=== PATIENT | male | born 1960 | race Caucasian/White ===

== ENCOUNTER 2016-04-19 10:47 | Emergency (ER) | payer BC, OTHER ==
[2016-04-19] MEDS ORDERED: ONDANSETRON 4MG/2ML VIAL (J2405) As Ordered ONE (11:39)
[2016-04-19] MEDS ORDERED: KETOROLAC 30 MG/ML VIAL (J1885) As Ordered ONE (11:40)
[2016-04-19 11:47] LABS: BASO % 0.4 % (0.0-1.0); EOS # 0.1 K/mm3 (0.0-0.50); EOS % 0.8 % (0.0-3.0); LARGE UNSTAINED CELL # 0.5 K/mm3 (0.0-0.4); LARGE UNSTAINED CELL % 3.6 % (0.0-4.0); LYMPH # 2.3 K/mm3 (1.5-4.5); LYMPH % 17.7 % (24.0-44.0); MEAN CORPUSCULAR HEMOGLOBIN 31.5 pg (27.0-33.0); MEAN CORPUSCULAR HGB CONC 34.1 g/dl (32.0-36.5); MEAN CORPUSCULAR VOLUME 92.4 fl (80.0-96.0); MONO # 1.1 K/mm3 (0.0-0.8); MONO % 8.9 % (0.0-5.0); NEUTROPHILS # 8.8 K/mm3 (1.8-7.7); NEUTROPHILS % 68.6 % (36.0-66.0); PLATELET COUNT, AUTOMATED 308 k/mm3 (150-450); WHITE BLOOD COUNT 12.8 K/mm3 (4.0-10.0)
--- NOTE | 2016-04-19 12:16 | REP ---
Abdominal series 04/19/2016 Indication: Abdominal pain Comparison : PA and lateral chest 07/15/2015 PA chest radiograph : Cardiomediastinal silhouette is normal. The lungs are clear bilaterally. Small amount of biapical pleural thickening is unchanged compatible with biapical pleural scarring. Bones and soft tissues are within normal limits. Impression: no acute cardiopulmonary process or interval change. Mild stable biapical pleural thickening/scarring. Flat and upright KUB 04/19/2016 Bowel gas pattern is nonspecific. Moderate stool is noted within the left colon. There are no abnormal air-fluid levels or free intraperitoneal air. Coarse calcifications are seen in the central lower pelvis most compatible with prostatic calcifications. Phleboliths are also noted in the right lower pelvis. Bones are normal in appearance. Impression: nonspecific bowel gas pattern. Moderate stool in the left colon. No free intraperitoneal air. Signed by Giovana Marcial MD 04/19/2016 12:08 P
[2016-04-19 12:22] LABS: INR 0.97
[2016-04-19 12:43] LABS: ALBUMIN 4.2 GM/DL (3.2-5.2); ALKALINE PHOSPHATASE 89 U/L (45-117); ALT/SGPT 31 U/L (12-78); AMYLASE 88 U/L (25-115); ANION GAP 9 MEQ/L (8-16); AST/SGOT 18 U/L (15-37); BILIRUBIN,DIRECT 0.2 MG/DL (0.0-0.2); BILIRUBIN,TOTAL 0.6 MG/DL (0.2-1.0); BLOOD UREA NITROGEN 23 MG/DL (7-18); CALCIUM LEVEL 9.7 MG/DL (8.5-10.1); CARBON DIOXIDE LEVEL 30 MEQ/L (21-32); CHLORIDE LEVEL 99 MEQ/L (98-107); CREATININE FOR GFR 1.07 MG/DL (0.70-1.30); GLOMERULAR FILTRATION RATE > 60.0 (>56); GLUCOSE, FASTING 103 MG/DL (70-105); SODIUM LEVEL 138 MEQ/L (136-145); TOTAL PROTEIN 7.2 GM/DL (6.4-8.2)
--- NOTE | 2016-04-19 13:20 | EDDOCDS ---
Physician Documentation [facility] Name: Bladimir Anna Age: 55 yrs Sex: Male : 1960 Arrival Date: 04/19/2016 Time: 10:47 Bed I3 / M3 Private MD: Johana Cedeno Abdul Disposition: 04/19/16 13:08 Discharged to Home/Self Care. Impression: Abdominal and pelvic pain, Vomiting. - Condition is Stable. - Discharge Instructions: Abdominal Pain, Adult, Nausea and Vomiting. - Prescriptions for Naprosyn 500 mg Oral Tablet - take 1 tablet by ORAL route 2 times per day take with food; 30 tablet. Reglan 10 mg Oral Tablet - take 1 tablet by ORAL route every 6 hours take 30 minutes before meals and at bedtime; 20 tablet. - Medication Reconciliation, Local Pharmacy Hours form. - Follow up: Johana Cedeno; When: 4 - 5 days; Reason: Recheck today's complaints, Continuance of care. - Problem is an ongoing problem. - Symptoms are unchanged. Historical: - Allergies: no known allergies; - Home Meds: 1. none - PMHx: none; - PSHx: none; - Social history: Smoking status: Patient uses tobacco products, heavy tobacco smoker. No barriers to communication noted, The patient speaks fluent Chinese. - Family history: Not pertinent. - : The pt / caregiver states he / she is not on anticoagulants. Home medication list is obtained from the patient. - Exposure Risk Screening:: None identified. Vital Signs: 04/19 10:50 BP 115 / 90; Pulse 92; Resp 18 S; Temp 97.3(O); Pulse Ox 97% on R/A; Weight 65.32 kg / gr2 144.01 lbs (R); Height 5 ft. 11 in. (180.34 cm) (R); Pain 6/10; 13:17 BP 129 / 86 RA Supine (auto/lg); Pulse 71; Resp 16; Temp 98.0(O); Pulse Ox 99% on R/A; rs6 Pain 5/10; 10:50 Body Mass Index 20.08 (65.32 kg, 180.34 cm) gr2 MDM: 10:51 ECG WITH READING ER PHYS+CARDIAG ordered. EDMS 11:15 NS 0.9% 1000 ml IV at bolus once ordered. ke 11:15 Ondansetron 4 mg IVP once ordered. ke 11:15 ketorolac 30 mg IVP once ordered. ke 11:15 IV Saline Lock ordered. ke 11:15 Undress patient appropriately for examination ordered. ke 11:15 Amylase Ordered. EDMS 11:15 Basic Metabolic Profile Ordered. EDMS 11:15 CBC with Diff Ordered. EDMS 11:15 Lipase Ordered. EDMS 11:16 Liver Profile Ordered. EDMS 11:16 Prothrombin Time Profile\E\INR Ordered. EDMS 11:16 Urinalysis Ordered. EDMS 11:17 Abdomen, Flat\E\Upright,PA Chest Ordered. EDMS 11:17 NOTHING BY MOUTH+DIET ordered. EDMS 11:19 ETHYL ALCOHOL (ETHANOL) Ordered. EDMS 11:36 Financial registration complete. lg 12:06 [facility] Payment Agreement was scanned into [employer] and attached to record. lg 13:04 Basic Metabolic Profile Reviewed. ke 13:04 CBC with Diff Reviewed. ke 13:04 Urinalysis Reviewed. ke 13:04 Amylase Reviewed. ke 13:04 Lipase Reviewed. ke 13:04 Liver Profile Reviewed. ke 13:04 Prothrombin Time Profile\E\INR Reviewed. ke 13:04 ETHYL ALCOHOL (ETHANOL) Reviewed. ke 13:04 Abdomen, Flat\E\Upright,PA Chest Reviewed. ke Administered Medications: 11:38 Drug: NS 0.9% 1000 ml Route: IV; Rate: bolus; Site: left antecubital; [facility] 13:19 Follow up: IV Status: Completed infusion dls 12:09 Drug: Ondansetron 4 mg Route: IVP; Site: left antecubital; [facility] 12:09 Drug: ketorolac 30 mg [ketorolac 30 mg/mL (1 mL) injection solution (1 mL)] Route: IVP; [facility] Site: left antecubital; Signatures: Dispatcher MedHo EDFL Jeffery Li RN RN jmk Scott, Debra, RN RN dls Ganter, LoriLee, Armando Reg Anil Healy, ENGINE LATHE TENDER ENGINE LATHE TENDER Blanka Hernandez RN RN jc4 The chart was reviewed and I authenticate all verbal orders and agree with the evaluation and treatment provided.Corrections: (The following items were deleted from the chart) 11:19 11:16 ETHYL ALCOHOL (ETHANOL)+LAB ordered. EDMS EDMS Attachments: 12:06 [facility] Payment Agreement lg MTDD
--- NOTE | 2016-04-19 13:21 | EDDOCDS ---
Nurse's Notes [facility] Name: Bladimir Anna Age: 55 yrs Sex: Male : 1960 Arrival Date: 04/19/2016 Time: 10:47 Bed I3 / M3 Private MD: Johana Cedeno Abdul Diagnosis: Abdominal and pelvic pain;Vomiting Presentation: 04/19 10:52 Presenting complaint: Patient states: tightness in abdomen since 04/16. States vomited jc4 6-7 times. Was seen at [facility] and was given Zofran. States has helped the nausea, but pain continues. Pain is in upper abdomen and radiates into back. Pt complains of diarrhea on 04/16. Adult Sepsis Screening: The patient does not have new or worsening altered mentation. Patient's respiratory rate is less than 22. Systolic blood pressure is greater than 100. Patient has a qSOFA score of 0- Negative Sepsis Screen. Suicide/Homicide risk assessment- the patient denies having any suicidal and/or homicidal ideations and does not present with any other emotional, behavioral or mental health complaints. Status: Patient is not a service associate or dependent. Transition of care: patient was not received from another setting of care. 10:52 Acuity: AKANKSHA Level 3 jc4 10:52 Method Of Arrival: Wheelchair jc4 Triage Assessment: 10:54 General: Appears in no apparent distress. Pain: Pain currently is 5 out of 10 on a pain jc4 scale. HIV screening NA for this visit Offered previously. Historical: - Allergies: no known allergies; - Home Meds: 1. none - PMHx: none; - PSHx: none; - Social history: Smoking status: Patient uses tobacco products, heavy tobacco smoker. No barriers to communication noted, The patient speaks fluent Sierra Leonean. - Family history: Not pertinent. - : The pt / caregiver states he / she is not on anticoagulants. Home medication list is obtained from the patient. - Exposure Risk Screening:: None identified. Screenin:10 Screening information is obtained from the patient. Fall risk: No risks identified. jmk Assistance ADL's: requires no assistance with activities of daily living. Abuse/DV Screen: The patient / caregiver reports he/she is: not in a situation that causes fear, pain or injury. Nutritional screening: No deficits noted. Advance Directives: Currently, there is no health care proxy. There is no active DNR order. There is no living will. There is no Power of Director Of Curriculum And Instruction. Advance directive information has not previously been placed in an [facility] medical record. home support is adequate. Assessment: 12:10 General: Appears in no apparent distress. Cardiovascular: No deficits noted. Capillary jmk refill < 3 seconds Clubbing of nail beds is absent Heart tones S1 S2 present. Respiratory: No deficits noted. Airway is patent Respiratory effort is even, unlabored, Respiratory pattern is regular, Breath sounds are clear bilaterally. GI: Abdomen is flat, non- distended Bowel sounds present X 4 quads. Abd is tender to palpation in right upper quadrant, left upper quadrant, right lower quadrant and left lower quadrant. 12:50 General: Appears states pian has decreased to 6/10, continues to present in NAD. [facility] Vital Signs: 10:50 BP 115 / 90; Pulse 92; Resp 18 S; Temp 97.3(O); Pulse Ox 97% on R/A; Weight 65.32 kg gr2 (R); Height 5 ft. 11 in. (180.34 cm) (R); Pain 6/10; 13:17 BP 129 / 86 RA Supine (auto/lg); Pulse 71; Resp 16; Temp 98.0(O); Pulse Ox 99% on R/A; rs6 Pain 5/10; 10:50 Body Mass Index 20.08 (65.32 kg, 180.34 cm) gr2 Vitals: 10:50 Log In Time: April 19, 2016 at 10:50. RN notified that patient meets Red Flag gr2 criteria. ED Course: 10:48 Patient visited by Kelly Hartman. gr2 10:48 Patient moved to Waiting gr2 10:49 Johana Cedeno is Private Physician. gr2 10:51 Patient visited by Kelly Hartman. gr2 10:51 Patient moved to Pre RCE gr2 10:54 Triage Initiated jc4 10:59 Patient moved to Triage 1 jc4 11:03 EKG done. (by ED staff). Reviewed by Eliseo Manley MD. ar3 11:08 Patient visited by Pat Fournier PCA. ar3 11:08 [facility]. ke 11:08 Patient visited by Anil Dye FNP. ke 11:08 Patient visited by Anil Dye FNP. ke 11:17 Liset Alejandro, RN is Primary Nurse. rs3 11:17 Patient moved to I3 / M3 rs3 11:37 ETHYL ALCOHOL (ETHANOL) Sent. jmk 11:37 Amylase Sent. jmk 11:37 Basic Metabolic Profile Sent. jmk 11:37 CBC with Diff Sent. jmk 11:37 Lipase Sent. jmk 11:37 Liver Profile Sent. jmk 11:37 Prothrombin Time Profile\E\INR Sent. jmk 11:41 Patient visited by Anil Dye FNP. ke 11:42 Patient moved to Radiology dem1 12:01 Patient moved to I3 / M3 gg 12:04 Patient name changed from Bladimir\S\C\S\West\S\ to Bladimir\S\Jacques\S\West. EDMS 12:06 [facility] Payment Agreement was scanned into [employer] and attached to record. lg 12:10 The patient / caregiver is instructed regarding the plan of care and ED course. jmk 12:10 Inserted saline lock: 20 gauge in left antecubital area. jmk 12:15 Patient visited by Anil Dye FNP. ke 12:38 Patient visited by Anil Dye FNP. ke 12:42 Abdomen, Flat\E\Upright,PA Chest Returned. EDMS 12:51 Patient visited by Jeffery Li,KIRK. jmk 13:07 Johana Cedeno is Referral Physician. ke 13:17 Patient visited by Bertha Syed, MARIA A. rs6 13:18 Discontinued IV lock intact, bleeding controlled, pressure dressing applied, No dls redness/swelling at site. No procedures done that require assistance. Administered Medications: 11:38 Drug: NS 0.9% 1000 ml Route: IV; Rate: bolus; Site: left antecubital; [facility] 13:19 Follow up: IV Status: Completed infusion dls 12:09 Drug: Ondansetron 4 mg Route: IVP; Site: left antecubital; jmk 12:09 Drug: ketorolac 30 mg [ketorolac 30 mg/mL (1 mL) injection solution (1 mL)] Route: IVP; lorenzo Site: left antecubital; Order Results: Lab Order: Amylase; SPEC'M 17 12:00 Test: AMYLASE; Value: 88; Range: 25-115; Units: U/L; Status: F Lab Order: Basic Metabolic Profile; 04/19/16 12:00 Test: GLUCOSE, FASTING; Value: 103; Range: 70-105; Units: MG/DL; Status: F Test: BLOOD UREA NITROGEN; Value: 23; Range: 7-18; Abnormal: Above high normal; Units: MG/DL; Status: F Test: CREATININE FOR GFR; Value: 1.07; Range: 0.70-1.30; Units: MG/DL; Status: F Test: GLOMERULAR FILTRATION RATE; Value: > 60.0; Range: >56; Status: F Test: SODIUM LEVEL; Value: 138; Range: 136-145; Units: MEQ/L; Status: F Test: POTASSIUM SERUM; Value: 4.0; Range: 3.5-5.1; Units: MEQ/L; Status: F Test: CHLORIDE LEVEL; Value: 99; Range: 98-107; Units: MEQ/L; Status: F Test: CARBON DIOXIDE LEVEL; Value: 30; Range: 21-32; Units: MEQ/L; Status: F Test: ANION GAP; Value: 9; Range: 8-16; Units: MEQ/L; Status: F Test: CALCIUM LEVEL; Value: 9.7; Range: 8.5-10.1; Units: MG/DL; Status: F Test Note: ; Units are mL/min/1.73 m2 Chronic Kidney Disease Staging per NKF: Stage I & II GFR >=60 Normal to Mildly Decreased Stage III GFR 30-59 Moderately Decreased Stage IV GFR 15-29 Severely Decreased Stage V GFR <15 Very Little GFR Left ESRD GFR <15 on GEL COATER Lab Order: CBC with Diff; 04/19/16 11:35 Test: WHITE BLOOD COUNT; Value: 12.8; Range: 4.0-10.0; Abnormal: Above high normal; Units: K/mm3; Status: F Test: RED BLOOD COUNT; Value: 5.32; Range: 4.30-6.10; Units: M/mm3; Status: F Test: HEMOGLOBIN; Value: 16.8; Range: 14.0-18.0; Units: g/dl; Status: F Test: HEMATOCRIT; Value: 49.2; Range: 42.0-52.0; Units: %; Status: F Test: MEAN CORPUSCULAR VOLUME; Value: 92.4; Range: 80.0-96.0; Units: fl; Status: F Test: MEAN CORPUSCULAR HEMOGLOBIN; Value: 31.5; Range: 27.0-33.0; Units: pg; Status: F Test: MEAN CORPUSCULAR HGB CONC; Value: 34.1; Range: 32.0-36.5; Units: g/dl; Status: F Test: RED CELL DISTRIBUTION WIDTH; Value: 13.0; Range: 11.5-14.5; Units: %; Status: F Test: PLATELET COUNT, AUTOMATED; Value: 308; Range: 150-450; Units: k/mm3; Status: F Test: NEUTROPHILS %; Value: 68.6; Range: 36.0-66.0; Abnormal: Above high normal; Units: %; Status: F Test: LYMPH %; Value: 17.7; Range: 24.0-44.0; Abnormal: Below low normal; Units: %; Status: F Test: MONO %; Value: 8.9; Range: 0.0-5.0; Abnormal: Above high normal; Units: %; Status: F Test: EOS %; Value: 0.8; Range: 0.0-3.0; Units: %; Status: F Test: BASO %; Value: 0.4; Range: 0.0-1.0; Units: %; Status: F Test: LARGE UNSTAINED CELL %; Value: 3.6; Range: 0.0-4.0; Units: %; Status: F Test: NEUTROPHILS #; Value: 8.8; Range: 1.8-7.7; Abnormal: Above high normal; Units: K/mm3; Status: F Test: LYMPH #; Value: 2.3; Range: 1.5-4.5; Units: K/mm3; Status: F Test: MONO #; Value: 1.1; Range: 0.0-0.8; Abnormal: Above high normal; Units: K/mm3; Status: F Test: EOS #; Value: 0.1; Range: 0.0-0.50; Units: K/mm3; Status: F Test: BASO #; Value: 0.0; Range: 0.0-0.2; Units: K/mm3; Status: F Test: LARGE UNSTAINED CELL #; Value: 0.5; Range: 0.0-0.4; Abnormal: Above high normal; Units: K/mm3; Status: F Lab Order: Lipase; [facility] 04/19/16 12:00 Test: LIPASE; Value: 329; Range: 73-393; Units: U/L; Status: F Lab Order: Liver Profile; [facility] 04/19/16 12:00 Test: AST/SGOT; Value: 18; Range: 15-37; Units: U/L; Status: F Test: ALT/SGPT; Value: 31; Range: 12-78; Units: U/L; Status: F Test: ALKALINE PHOSPHATASE; Value: 89; Range: 45-117; Units: U/L; Status: F Test: BILIRUBIN,TOTAL; Value: 0.6; Range: 0.2-1.0; Units: MG/DL; Status: F Test: BILIRUBIN,DIRECT; Value: 0.2; Range: 0.0-0.2; Units: MG/DL; Status: F Test: TOTAL PROTEIN; Value: 7.2; Range: 6.4-8.2; Units: GM/DL; Status: F Test: ALBUMIN; Value: 4.2; Range: 3.2-5.2; Units: GM/DL; Status: F Test: ALBUMIN/GLOBULIN RATIO; Value: 1.40; Range: 1.00-1.93; Status: F Lab Order: Prothrombin Time Profile\E\INR; [facility] 04/19/16 12:00 Test: PROTHROMBIN TIME; Value: 13.0; Range: 12.3-14.5; Units: SECONDS; Status: F Test: INR; Value: 0.97; Status: F Test Note: ; THERAPUTIC HUMAN INR VALUES INDICATIONS NORMAL RANGES PROPHYLAXIS/TREATMENT OF: VENOUS THROMBOSIS 2.0-3.0 PULMONARY EMBOLISM 2.0-3.0 PREVENTION OF SYSTEMIC EMBOLISM FROM: TISSUE HEART VALVES 2.0-3.0 ACUTE MYOCARDIAL INFARCTION 2.0-3.0 VALVULAR HEART DISEASE 2.0-3.0 ATRIAL FIBRILLATION 2.0-3.0 MECHANICAL VALVES(HIGH RISK) 2.5-3.5 RECURRENT MYOCARDIAL INFARCTION 2.5-3.5 Lab Order: Urinalysis; SPEC'M 04/19/16 11:21 Test: APPEARANCE, URINE; Value: HAZY; Range: CLEAR; Status: F Test: COLOR, URINE; Value: KRISTIAN; Range: YELLOW; Status: F Test: PH,URINE; Value: 5.0; Range: 5.0-9.0; Units: UNITS; Status: F Test: SPECIFIC GRAVITY URINE AUTO; Value: 1.027; Range: 1.002-1.035; Status: F Test: PROTEIN, URINE AUTO; Value: 1+; Range: NEGATIVE; Abnormal: Above high normal; Units: mg/dL; Status: F Test: GLUCOSE, URINE (UA) AUTO; Value: NEGATIVE; Range: NEGATIVE; Units: mg/dL; Status: F Test: KETONE, URINE AUTO; Value: TRACE; Range: NEGATIVE; Abnormal: Above high normal; Units: mg/dL; Status: F Test: UROBILINOGEN, URINE AUTO; Value: 0.2; Range: 0.0-2.0; Units: mg/dL; Status: F Test: BILIRUBIN, URINE AUTO; Value: NEGATIVE; Range: NEGATIVE; Status: F Test: NITRITE, URINE AUTO; Value: NEGATIVE; Range: NEGATIVE; Status: F Test: LEUKOCYTE ESTERASE, URINE AUTO; Value: NEGATIVE; Range: NEGATIVE; Status: F Test: BLOOD, URINE BLOOD; Value: 1+; Range: NEGATIVE; Abnormal: Above high normal; Status: F Test: WBC, URINE AUTO; Value: 2; Range: 0-3; Units: /HPF; Status: F Test: RBC, URINE AUTO; Value: 3; Range: 0-3; Units: /HPF; Status: F Test: BACTERIA, URINE AUTO; Value: NEGATIVE; Range: NEGATIVE; Status: F Test: SQUAMOUS EPITHELIAL CELL UR AU; Value: 1; Range: 0-6; Units: /HPF; Status: F Test: MUCUS, URINE; Value: LARGE; Range: NEGATIVE; Status: F Test: HYALINE CAST, URINE AUTO; Value: 1; Range: 0-1; Units: /LPF; Status: F Lab Order: ETHYL ALCOHOL (ETHANOL); SPEC'M 04/19/16 12:00 Test: ETHYL ALCOHOL (ETHANOL); Value: < 0.003; Range: 0.000-0.010; Units: %; Status: F Radiology Order: Abdomen, Flat\E\Upright,PA Chest Test: Abdomen, Flat\E\Upright,PA Chest REASON FOR EXAMINATION: Abdomen Pain; Abdominal series 04/19/2016; ; Indication: Abdominal pain; ; Comparison : PA and lateral chest 07/15/2015; ; PA chest radiograph :; ; Cardiomediastinal silhouette is normal. The lungs are clear bilaterally. Small; amount of biapical pleural thickening is unchanged compatible with biapical; pleural scarring. Bones and soft tissues are within normal limits.; ; Impression: no acute cardiopulmonary process or interval change. Mild stable; biapical pleural thickening/scarring.; ; ; ; Flat and upright KUB 04/19/2016; ; Bowel gas pattern is nonspecific. Moderate stool is noted within the left; colon. There are no abnormal air-fluid levels or free intraperitoneal air.; ; Coarse calcifications are seen in the central lower pelvis most compatible with; prostatic calcifications. Phleboliths are also noted in the right lower pelvis.; Bones are normal in appearance.; ; Impression: nonspecific bowel gas pattern. Moderate stool in the left colon.; No free intraperitoneal air.; ; ; Signed by; Giovana Marcial MD 04/19/2016 12:08 P; Outcome: 13:08 Discharge ordered by Provider. armani 13:19 Discharge Assessment: Patient awake, alert and oriented x 3. No cognitive and/or dls functional deficits noted. Patient verbalized understanding of disposition instructions. patient administered narcotics - no. The following High Risk Discharge criteria are identified: None. Discharged to home ambulatory. Condition: stable Condition: improved. Discharge instructions given to patient, Instructed on discharge instructions, follow up and referral plans. medication usage, Demonstrated understanding of instructions, medications, Pt was receptive of discharge instructions/ teaching. Prescriptions given X 2. No special radiology studies were completed. Property sent home with patient. 13:20 Patient left the ED. dls Signatures: Dispatcher [employer] EDMS Jeffery Li,RN Liset Martin RN RN dls Ale Kent, Reg Reg lg Anil Dye, INDUSTRIAL RELATIONS SPECIALIST INDUSTRIAL RELATIONS SPECIALIST Trenton Alarcon Rosemary, RN RN rs3 Pat Fournier, PROPOSAL DEVELOPMENT MANAGER PROPOSAL DEVELOPMENT MANAGER ar3 Blanka Cruz RN RN jc4 Monica Huang1 Kelly Hartman gr2 Bertha Syed, PROPOSAL DEVELOPMENT MANAGER PROPOSAL DEVELOPMENT MANAGER rs6 MTDD
--- NOTE | 2016-04-20 19:46 | ECGEPIP ---
Stationary ECG Study [facility] - ED Test Date: 2016-04-19 Pat Name: JOSE MIGUEL HERNANDEZ Department: Room: - Gender: M [employer] Tick[employer]: jeanmarie : 1960 Requested By: DENVER Pugh Order Number: [id number] Reading MD: Audrey Delgado Measurements Intervals [place] Rate: 74 P: 81 AL: 147 QRS: 75 QRSD: 105 T: 43 QT: 346 QTc: 386 Interpretive Statements SINUS RHYTHM POSSIBLE RIGHT ATRIAL ENLARGEMENT SIMILAR 12/31/11 Electronically Signed On 04-20-2016 19:46:22 EST by Audrey Delgado
--- NOTE | 2016-04-21 14:21 | EDDOCDS ---
Physician Documentation [facility] Name: Bladimir Anna Age: 55 yrs Sex: Male : 1960 Arrival Date: 04/19/2016 Time: 10:47 Bed I3 / M3 Private MD: Johana Cedeno Abdul Disposition: 04/19/16 13:08 Discharged to Home/Self Care. Impression: Abdominal and pelvic pain, Vomiting. - Condition is Stable. - Discharge Instructions: Abdominal Pain, Adult, Nausea and Vomiting. - Prescriptions for Naprosyn 500 mg Oral Tablet - take 1 tablet by ORAL route 2 times per day take with food; 30 tablet. Reglan 10 mg Oral Tablet - take 1 tablet by ORAL route every 6 hours take 30 minutes before meals and at bedtime; 20 tablet. - Medication Reconciliation, Local Pharmacy Hours form. - Follow up: Johana Cedeno; When: 4 - 5 days; Reason: Recheck today's complaints, Continuance of care. - Problem is an ongoing problem. - Symptoms are unchanged. Historical: - Allergies: no known allergies; - Home Meds: 1. none - PMHx: none; - PSHx: none; - Social history: Smoking status: Patient uses tobacco products, heavy tobacco smoker. No barriers to communication noted, The patient speaks fluent Kyrgyz. - Family history: Not pertinent. - : The pt / caregiver states he / she is not on anticoagulants. Home medication list is obtained from the patient. - Exposure Risk Screening:: None identified. Vital Signs: 04/19 10:50 BP 115 / 90; Pulse 92; Resp 18 S; Temp 97.3(O); Pulse Ox 97% on R/A; Weight 65.32 kg / gr2 144.01 lbs (R); Height 5 ft. 11 in. (180.34 cm) (R); Pain 6/10; 13:17 BP 129 / 86 RA Supine (auto/lg); Pulse 71; Resp 16; Temp 98.0(O); Pulse Ox 99% on R/A; rs6 Pain 5/10; 10:50 Body Mass Index 20.08 (65.32 kg, 180.34 cm) gr2 MDM: 10:51 ECG WITH READING ER PHYS+CARDIAG ordered. EDMS 11:15 NS 0.9% 1000 ml IV at bolus once ordered. ke 11:15 Ondansetron 4 mg IVP once ordered. ke 11:15 ketorolac 30 mg IVP once ordered. ke 11:15 IV Saline Lock ordered. ke 11:15 Undress patient appropriately for examination ordered. ke 11:15 Amylase Ordered. EDMS 11:15 Basic Metabolic Profile Ordered. EDMS 11:15 CBC with Diff Ordered. EDMS 11:15 Lipase Ordered. EDMS 11:16 Liver Profile Ordered. EDMS 11:16 Prothrombin Time Profile\E\INR Ordered. EDMS 11:16 Urinalysis Ordered. EDMS 11:17 Abdomen, Flat\E\Upright,PA Chest Ordered. EDMS 11:17 NOTHING BY MOUTH+DIET ordered. EDMS 11:19 ETHYL ALCOHOL (ETHANOL) Ordered. EDMS 11:36 Financial registration complete. lg 12:06 [facility] Payment Agreement was scanned into [employer] and attached to record. lg 13:04 Basic Metabolic Profile Reviewed. ke 13:04 CBC with Diff Reviewed. ke 13:04 Urinalysis Reviewed. ke 13:04 Amylase Reviewed. ke 13:04 Lipase Reviewed. ke 13:04 Liver Profile Reviewed. ke 13:04 Prothrombin Time Profile\E\INR Reviewed. ke 13:04 ETHYL ALCOHOL (ETHANOL) Reviewed. ke 13:04 Abdomen, Flat\E\Upright,PA Chest Reviewed. ke 04/20 13:30 T-Sheet-- Draft Copy was scanned into [employer] and attached to record. gb 13:30 ECG/EKG was scanned into [employer] and attached to record. gb Administered Medications: 04/19 11:38 Drug: NS 0.9% 1000 ml Route: IV; Rate: bolus; Site: left antecubital; serjiok 13:19 Follow up: IV Status: Completed infusion dls 12:09 Drug: Ondansetron 4 mg Route: IVP; Site: left antecubital; k 12:09 Drug: ketorolac 30 mg [ketorolac 30 mg/mL (1 mL) injection solution (1 mL)] Route: IVP; lorenzo Site: left antecubital; Signatures: Dispatcher [employer] EDMS Jeffery Li RN RN Liset Quick RN RN dls Madonna Malin, Reg Reg gb Ale Kent, Reg Reg lg Anil Dye, ASSISTANT STORE MANAGER SALES ASSISTANT STORE MANAGER SALES Blanka Hernandez RN RN jc4 The chart was reviewed and I authenticate all verbal orders and agree with the evaluation and treatment provided.Corrections: (The following items were deleted from the chart) 11:19 11:16 ETHYL ALCOHOL (ETHANOL)+LAB ordered. EDMS EDMS Attachments: 12:06 [facility] Payment Agreement lg 04/20 13:30 T-Sheet-- Draft Copy gb 13:30 ECG/EKG gb Chart Complete MTDD
--- NOTE | 2016-04-21 14:21 | EDDOCDS ---
Nurse's Notes [facility] Name: Jose Miguel Hernandez Age: 55 yrs Sex: Male : 1960 Arrival Date: 04/19/2016 Time: 10:47 Bed I3 / M3 Private MD: Johana Cedeno Abdul Diagnosis: Abdominal and pelvic pain;Vomiting Presentation: 04/19 10:52 Presenting complaint: Patient states: tightness in abdomen since 04/16. States vomited jc4 6-7 times. Was seen at [facility] and was given Zofran. States has helped the nausea, but pain continues. Pain is in upper abdomen and radiates into back. Pt complains of diarrhea on 04/16. Adult Sepsis Screening: The patient does not have new or worsening altered mentation. Patient's respiratory rate is less than 22. Systolic blood pressure is greater than 100. Patient has a qSOFA score of 0- Negative Sepsis Screen. Suicide/Homicide risk assessment- the patient denies having any suicidal and/or homicidal ideations and does not present with any other emotional, behavioral or mental health complaints. Status: Patient is not a sales service executive or dependent. Transition of care: patient was not received from another setting of care. 10:52 Acuity: AKANKSHA Level 3 jc4 10:52 Method Of Arrival: Wheelchair jc4 Triage Assessment: 10:54 General: Appears in no apparent distress. Pain: Pain currently is 5 out of 10 on a pain jc4 scale. HIV screening NA for this visit Offered previously. Historical: - Allergies: no known allergies; - Home Meds: 1. none - PMHx: none; - PSHx: none; - Social history: Smoking status: Patient uses tobacco products, heavy tobacco smoker. No barriers to communication noted, The patient speaks fluent Sammarinese. - Family history: Not pertinent. - : The pt / caregiver states he / she is not on anticoagulants. Home medication list is obtained from the patient. - Exposure Risk Screening:: None identified. Screenin:10 Screening information is obtained from the patient. Fall risk: No risks identified. jmk Assistance ADL's: requires no assistance with activities of daily living. Abuse/DV Screen: The patient / caregiver reports he/she is: not in a situation that causes fear, pain or injury. Nutritional screening: No deficits noted. Advance Directives: Currently, there is no health care proxy. There is no active DNR order. There is no living will. There is no Power of Home Health Care Provider. Advance directive information has not previously been placed in an [facility] medical record. home support is adequate. Assessment: 12:10 General: Appears in no apparent distress. Cardiovascular: No deficits noted. Capillary jmk refill < 3 seconds Clubbing of nail beds is absent Heart tones S1 S2 present. Respiratory: No deficits noted. Airway is patent Respiratory effort is even, unlabored, Respiratory pattern is regular, Breath sounds are clear bilaterally. GI: Abdomen is flat, non- distended Bowel sounds present X 4 quads. Abd is tender to palpation in right upper quadrant, left upper quadrant, right lower quadrant and left lower quadrant. 12:50 General: Appears states pian has decreased to 6/10, continues to present in NAD. [facility] Vital Signs: 10:50 BP 115 / 90; Pulse 92; Resp 18 S; Temp 97.3(O); Pulse Ox 97% on R/A; Weight 65.32 kg gr2 (R); Height 5 ft. 11 in. (180.34 cm) (R); Pain 6/10; 13:17 BP 129 / 86 RA Supine (auto/lg); Pulse 71; Resp 16; Temp 98.0(O); Pulse Ox 99% on R/A; rs6 Pain 5/10; 10:50 Body Mass Index 20.08 (65.32 kg, 180.34 cm) gr2 Vitals: 10:50 Log In Time: April 19, 2016 at 10:50. RN notified that patient meets Red Flag gr2 criteria. ED Course: 10:48 Patient visited by Kelly Hartman. gr2 10:48 Patient moved to Waiting gr2 10:49 Johana Cedeno is Private Physician. gr2 10:51 Patient visited by Kelly Hartman. gr2 10:51 Patient moved to Pre RCE gr2 10:54 Triage Initiated jc4 10:59 Patient moved to Triage 1 jc4 11:03 EKG done. (by ED staff). Reviewed by Denver Manley MD. ar3 11:08 Patient visited by Pat Fournier PCA. ar3 11:08 [facility]. ke 11:08 Patient visited by Anil yDe FNP. ke 11:08 Patient visited by Anil Dye FNP. ke 11:17 Liset Alejandro, RN is Primary Nurse. rs3 11:17 Patient moved to 3 / rs3 11:37 ETHYL ALCOHOL (ETHANOL) Sent. jmk 11:37 Amylase Sent. jmk 11:37 Basic Metabolic Profile Sent. jmk 11:37 CBC with Diff Sent. jmk 11:37 Lipase Sent. jmk 11:37 Liver Profile Sent. jmk 11:37 Prothrombin Time Profile\E\INR Sent. jmk 11:41 Patient visited by Anil Dye FNP. ke 11:42 Patient moved to Radiology dem1 12:01 Patient moved to I3 / gg 12:04 Patient name changed from Jose Miguel\S\C\S\West\S\ to Jose Miguel\S\Jacques\S\West. EDMS 12:06 [facility] Payment Agreement was scanned into E Ink and attached to record. lg 12:10 The patient / caregiver is instructed regarding the plan of care and ED course. jmk 12:10 Inserted saline lock: 20 gauge in left antecubital area. jmk 12:15 Patient visited by Anil Dye FNP. ke 12:38 Patient visited by Anil Dye FNP. ke 12:42 Abdomen, Flat\E\Upright,PA Chest Returned. EDMS 12:51 Patient visited by Jeffery Li,KIRK. jmk 13:07 Johana Cedeno is Referral Physician. ke 13:17 Patient visited by Bertha Syed, MARIA A. rs6 13:18 Discontinued IV lock intact, bleeding controlled, pressure dressing applied, No dls redness/swelling at site. No procedures done that require assistance. 04/20 13:30 T-Sheet-- Draft Copy was scanned into E Ink and attached to record. gb 13:30 ECG/EKG was scanned into E Ink and attached to record. gb 20:25 EKG-ADULT Returned. EDMS Administered Medications: 04/19 11:38 Drug: NS 0.9% 1000 ml Route: IV; Rate: bolus; Site: left antecubital; jmk 13:19 Follow up: IV Status: Completed infusion dls 12:09 Drug: Ondansetron 4 mg Route: IVP; Site: left antecubital; [facility] 12:09 Drug: ketorolac 30 mg [ketorolac 30 mg/mL (1 mL) injection solution (1 mL)] Route: IVP; [facility] Site: left antecubital; Order Results: Lab Order: Amylase; SPEC'04/19/16 12:00 Test: AMYLASE; Value: 88; Range: 25-115; Units: U/L; Status: F Lab Order: Basic Metabolic Profile; SPEC04/19/16 12:00 Test: GLUCOSE, FASTING; Value: 103; Range: 70-105; Units: MG/DL; Status: F Test: BLOOD UREA NITROGEN; Value: 23; Range: 7-18; Abnormal: Above high normal; Units: MG/DL; Status: F Test: CREATININE FOR GFR; Value: 1.07; Range: 0.70-1.30; Units: MG/DL; Status: F Test: GLOMERULAR FILTRATION RATE; Value: > 60.0; Range: >56; Status: F Test: SODIUM LEVEL; Value: 138; Range: 136-145; Units: MEQ/L; Status: F Test: POTASSIUM SERUM; Value: 4.0; Range: 3.5-5.1; Units: MEQ/L; Status: F Test: CHLORIDE LEVEL; Value: 99; Range: 98-107; Units: MEQ/L; Status: F Test: CARBON DIOXIDE LEVEL; Value: 30; Range: 21-32; Units: MEQ/L; Status: F Test: ANION GAP; Value: 9; Range: 8-16; Units: MEQ/L; Status: F Test: CALCIUM LEVEL; Value: 9.7; Range: 8.5-10.1; Units: MG/DL; Status: F Test Note: ; Units are mL/min/1.73 m2 Chronic Kidney Disease Staging per NKF: Stage I & II GFR >=60 Normal to Mildly Decreased Stage III GFR 30-59 Moderately Decreased Stage IV GFR 15-29 Severely Decreased Stage V GFR <15 Very Little GFR Left ESRD GFR <15 on BEAM DYER OPERATOR Lab Order: CBC with Diff; SPEC'04/19/16 11:35 Test: WHITE BLOOD COUNT; Value: 12.8; Range: 4.0-10.0; Abnormal: Above high normal; Units: K/mm3; Status: F Test: RED BLOOD COUNT; Value: 5.32; Range: 4.30-6.10; Units: M/mm3; Status: F Test: HEMOGLOBIN; Value: 16.8; Range: 14.0-18.0; Units: g/dl; Status: F Test: HEMATOCRIT; Value: 49.2; Range: 42.0-52.0; Units: %; Status: F Test: MEAN CORPUSCULAR VOLUME; Value: 92.4; Range: 80.0-96.0; Units: fl; Status: F Test: MEAN CORPUSCULAR HEMOGLOBIN; Value: 31.5; Range: 27.0-33.0; Units: pg; Status: F Test: MEAN CORPUSCULAR HGB CONC; Value: 34.1; Range: 32.0-36.5; Units: g/dl; Status: F Test: RED CELL DISTRIBUTION WIDTH; Value: 13.0; Range: 11.5-14.5; Units: %; Status: F Test: PLATELET COUNT, AUTOMATED; Value: 308; Range: 150-450; Units: k/mm3; Status: F Test: NEUTROPHILS %; Value: 68.6; Range: 36.0-66.0; Abnormal: Above high normal; Units: %; Status: F Test: LYMPH %; Value: 17.7; Range: 24.0-44.0; Abnormal: Below low normal; Units: %; Status: F Test: MONO %; Value: 8.9; Range: 0.0-5.0; Abnormal: Above high normal; Units: %; Status: F Test: EOS %; Value: 0.8; Range: 0.0-3.0; Units: %; Status: F Test: BASO %; Value: 0.4; Range: 0.0-1.0; Units: %; Status: F Test: LARGE UNSTAINED CELL %; Value: 3.6; Range: 0.0-4.0; Units: %; Status: F Test: NEUTROPHILS #; Value: 8.8; Range: 1.8-7.7; Abnormal: Above high normal; Units: K/mm3; Status: F Test: LYMPH #; Value: 2.3; Range: 1.5-4.5; Units: K/mm3; Status: F Test: MONO #; Value: 1.1; Range: 0.0-0.8; Abnormal: Above high normal; Units: K/mm3; Status: F Test: EOS #; Value: 0.1; Range: 0.0-0.50; Units: K/mm3; Status: F Test: BASO #; Value: 0.0; Range: 0.0-0.2; Units: K/mm3; Status: F Test: LARGE UNSTAINED CELL #; Value: 0.5; Range: 0.0-0.4; Abnormal: Above high normal; Units: K/mm3; Status: F Lab Order: Lipase; SPEC'04/19/16 12:00 Test: LIPASE; Value: 329; Range: 73-393; Units: U/L; Status: F Lab Order: Liver Profile; [facility] 12:00 Test: AST/SGOT; Value: 18; Range: 15-37; Units: U/L; Status: F Test: ALT/SGPT; Value: 31; Range: 12-78; Units: U/L; Status: F Test: ALKALINE PHOSPHATASE; Value: 89; Range: 45-117; Units: U/L; Status: F Test: BILIRUBIN,TOTAL; Value: 0.6; Range: 0.2-1.0; Units: MG/DL; Status: F Test: BILIRUBIN,DIRECT; Value: 0.2; Range: 0.0-0.2; Units: MG/DL; Status: F Test: TOTAL PROTEIN; Value: 7.2; Range: 6.4-8.2; Units: GM/DL; Status: F Test: ALBUMIN; Value: 4.2; Range: 3.2-5.2; Units: GM/DL; Status: F Test: ALBUMIN/GLOBULIN RATIO; Value: 1.40; Range: 1.00-1.93; Status: F Lab Order: Prothrombin Time Profile\E\INR; [facility]04/[facility] 12:00 Test: PROTHROMBIN TIME; Value: 13.0; Range: 12.3-14.5; Units: SECONDS; Status: F Test: INR; Value: 0.97; Status: F Test Note: ; THERAPUTIC HUMAN INR VALUES INDICATIONS NORMAL RANGES PROPHYLAXIS/TREATMENT OF: VENOUS THROMBOSIS 2.0-3.0 PULMONARY EMBOLISM 2.0-3.0 PREVENTION OF SYSTEMIC EMBOLISM FROM: TISSUE HEART VALVES 2.0-3.0 ACUTE MYOCARDIAL INFARCTION 2.0-3.0 VALVULAR HEART DISEASE 2.0-3.0 ATRIAL FIBRILLATION 2.0-3.0 MECHANICAL VALVES(HIGH RISK) 2.5-3.5 RECURRENT MYOCARDIAL INFARCTION 2.5-3.5 Lab Order: Urinalysis; SPEC'M 04/19/16 11:21 Test: APPEARANCE, URINE; Value: HAZY; Range: CLEAR; Status: F Test: COLOR, URINE; Value: KRISTIAN; Range: YELLOW; Status: F Test: PH,URINE; Value: 5.0; Range: 5.0-9.0; Units: UNITS; Status: F Test: SPECIFIC GRAVITY URINE AUTO; Value: 1.027; Range: 1.002-1.035; Status: F Test: PROTEIN, URINE AUTO; Value: 1+; Range: NEGATIVE; Abnormal: Above high normal; Units: mg/dL; Status: F Test: GLUCOSE, URINE (UA) AUTO; Value: NEGATIVE; Range: NEGATIVE; Units: mg/dL; Status: F Test: KETONE, URINE AUTO; Value: TRACE; Range: NEGATIVE; Abnormal: Above high normal; Units: mg/dL; Status: F Test: UROBILINOGEN, URINE AUTO; Value: 0.2; Range: 0.0-2.0; Units: mg/dL; Status: F Test: BILIRUBIN, URINE AUTO; Value: NEGATIVE; Range: NEGATIVE; Status: F Test: NITRITE, URINE AUTO; Value: NEGATIVE; Range: NEGATIVE; Status: F Test: LEUKOCYTE ESTERASE, URINE AUTO; Value: NEGATIVE; Range: NEGATIVE; Status: F Test: BLOOD, URINE BLOOD; Value: 1+; Range: NEGATIVE; Abnormal: Above high normal; Status: F Test: WBC, URINE AUTO; Value: 2; Range: 0-3; Units: /HPF; Status: F Test: RBC, URINE AUTO; Value: 3; Range: 0-3; Units: /HPF; Status: F Test: BACTERIA, URINE AUTO; Value: NEGATIVE; Range: NEGATIVE; Status: F Test: SQUAMOUS EPITHELIAL CELL UR AU; Value: 1; Range: 0-6; Units: /HPF; Status: F Test: MUCUS, URINE; Value: LARGE; Range: NEGATIVE; Status: F Test: HYALINE CAST, URINE AUTO; Value: 1; Range: 0-1; Units: /LPF; Status: F Lab Order: ETHYL ALCOHOL (ETHANOL); SPEC'M 04/19/16 12:00 Test: ETHYL ALCOHOL (ETHANOL); Value: < 0.003; Range: 0.000-0.010; Units: %; Status: F Radiology Order: EKG-ADULT Test: EKG-ADULT REASON FOR EXAMINATION: Chest Pain; Stationary ECG Study; [facility] - ED; ; Test Date: 2016-04-19; Pat Name: JOSE MIGUEL HERNANDEZ Department:; Room: -; 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; : 1960 Requested By: DENVER Pugh; Order Number: [id number] Reading MD: Audrey Delgado; Measurements; Intervals [place]; Rate: 74 P: 81; ND: 147 QRS: 75; QRSD: 105 T: 43; QT: 346; QTc: 386; Interpretive Statements; SINUS RHYTHM; POSSIBLE RIGHT ATRIAL ENLARGEMENT; SIMILAR 12/31/11; Electronically Signed On 04-20-2016 19:46:22 EST by Audrey Delgado; Radiology Order: Abdomen, Flat\E\Upright,PA Chest Test: Abdomen, Flat\E\Upright,PA Chest REASON FOR EXAMINATION: Abdomen Pain; Abdominal series 04/19/2016; ; Indication: Abdominal pain; ; Comparison : PA and lateral chest 07/15/2015; ; PA chest radiograph :; ; Cardiomediastinal silhouette is normal. The lungs are clear bilaterally. Small; amount of biapical pleural thickening is unchanged compatible with biapical; pleural scarring. Bones and soft tissues are within normal limits.; ; Impression: no acute cardiopulmonary process or interval change. Mild stable; biapical pleural thickening/scarring.; ; ; ; Flat and upright KUB 04/19/2016; ; Bowel gas pattern is nonspecific. Moderate stool is noted within the left; colon. There are no abnormal air-fluid levels or free intraperitoneal air.; ; Coarse calcifications are seen in the central lower pelvis most compatible with; prostatic calcifications. Phleboliths are also noted in the right lower pelvis.; Bones are normal in appearance.; ; Impression: nonspecific bowel gas pattern. Moderate stool in the left colon.; No free intraperitoneal air.; ; ; Signed by; Giovana Marcial MD 04/19/2016 12:08 P; Outcome: 13:08 Discharge ordered by Provider. armani 13:19 Discharge Assessment: Patient awake, alert and oriented x 3. No cognitive and/or dls functional deficits noted. Patient verbalized understanding of disposition instructions. patient administered narcotics - no. The following High Risk Discharge criteria are identified: None. Discharged to home ambulatory. Condition: stable Condition: improved. Discharge instructions given to patient, Instructed on discharge instructions, follow up and referral plans. medication usage, Demonstrated understanding of instructions, medications, Pt was receptive of discharge instructions/ teaching. Prescriptions given X 2. No special radiology studies were completed. Property sent home with patient. 13:20 Patient left the ED. dls Signatures: Dispatcher [employer] EDMS Jeffery Li,RN RN Liset Quick RN RN dls [place], Madonna, Reg Reg gb Ale Kent, Reg Reg lg Anil Dye, CUPOLA REPAIRER CUPOLA REPAIRER Trenton Alarcon Rosemary,RN RN rs3 Pat Fournier, VIDEOGAME TESTER VIDEOGAME TESTER ar3 Blanka Cruz, RN RN jc4 Monica Huang1 Kelly Hartman2 Bertha Syed, VIDEOGAME TESTER VIDEOGAME TESTER rs6 Chart Complete MTDD
--- NOTE | 2016-04-21 14:21 | EDDOCDS ---
Physician Documentation [facility] Name: Bladimir Anna Age: 55 yrs Sex: Male : 1960 Arrival Date: 04/19/2016 Time: 10:47 Bed I3 / M3 Private MD: Johana Cedeno Abdul Disposition: 04/19/16 13:08 Discharged to Home/Self Care. Impression: Abdominal and pelvic pain, Vomiting. - Condition is Stable. - Discharge Instructions: Abdominal Pain, Adult, Nausea and Vomiting. - Prescriptions for Naprosyn 500 mg Oral Tablet - take 1 tablet by ORAL route 2 times per day take with food; 30 tablet. Reglan 10 mg Oral Tablet - take 1 tablet by ORAL route every 6 hours take 30 minutes before meals and at bedtime; 20 tablet. - Medication Reconciliation, Local Pharmacy Hours form. - Follow up: Johana Cedeno; When: 4 - 5 days; Reason: Recheck today's complaints, Continuance of care. - Problem is an ongoing problem. - Symptoms are unchanged. Historical: - Allergies: no known allergies; - Home Meds: 1. none - PMHx: none; - PSHx: none; - Social history: Smoking status: Patient uses tobacco products, heavy tobacco smoker. No barriers to communication noted, The patient speaks fluent Slovenian. - Family history: Not pertinent. - : The pt / caregiver states he / she is not on anticoagulants. Home medication list is obtained from the patient. - Exposure Risk Screening:: None identified. Vital Signs: 04/19 10:50 BP 115 / 90; Pulse 92; Resp 18 S; Temp 97.3(O); Pulse Ox 97% on R/A; Weight 65.32 kg / gr2 144.01 lbs (R); Height 5 ft. 11 in. (180.34 cm) (R); Pain 6/10; 13:17 BP 129 / 86 RA Supine (auto/lg); Pulse 71; Resp 16; Temp 98.0(O); Pulse Ox 99% on R/A; rs6 Pain 5/10; 10:50 Body Mass Index 20.08 (65.32 kg, 180.34 cm) gr2 MDM: 10:51 ECG WITH READING ER PHYS+CARDIAG ordered. EDMS 11:15 NS 0.9% 1000 ml IV at bolus once ordered. ke 11:15 Ondansetron 4 mg IVP once ordered. ke 11:15 ketorolac 30 mg IVP once ordered. ke 11:15 IV Saline Lock ordered. ke 11:15 Undress patient appropriately for examination ordered. ke 11:15 Amylase Ordered. EDMS 11:15 Basic Metabolic Profile Ordered. EDMS 11:15 CBC with Diff Ordered. EDMS 11:15 Lipase Ordered. EDMS 11:16 Liver Profile Ordered. EDMS 11:16 Prothrombin Time Profile\E\INR Ordered. EDMS 11:16 Urinalysis Ordered. EDMS 11:17 Abdomen, Flat\E\Upright,PA Chest Ordered. EDMS 11:17 NOTHING BY MOUTH+DIET ordered. EDMS 11:19 ETHYL ALCOHOL (ETHANOL) Ordered. EDMS 11:36 Financial registration complete. lg 12:06 [facility] Payment Agreement was scanned into Secpanel and attached to record. lg 13:04 Basic Metabolic Profile Reviewed. ke 13:04 CBC with Diff Reviewed. ke 13:04 Urinalysis Reviewed. ke 13:04 Amylase Reviewed. ke 13:04 Lipase Reviewed. ke 13:04 Liver Profile Reviewed. ke 13:04 Prothrombin Time Profile\E\INR Reviewed. ke 13:04 ETHYL ALCOHOL (ETHANOL) Reviewed. ke 13:04 Abdomen, Flat\E\Upright,PA Chest Reviewed. ke 04/20 13:30 T-Sheet-- Draft Copy was scanned into Secpanel and attached to record. gb 13:30 ECG/EKG was scanned into Secpanel and attached to record. gb Administered Medications: 04/19 11:38 Drug: NS 0.9% 1000 ml Route: IV; Rate: bolus; Site: left antecubital; serjiok 13:19 Follow up: IV Status: Completed infusion dls 12:09 Drug: Ondansetron 4 mg Route: IVP; Site: left antecubital; k 12:09 Drug: ketorolac 30 mg [ketorolac 30 mg/mL (1 mL) injection solution (1 mL)] Route: IVP; lorenzo Site: left antecubital; Signatures: Dispatcher [employer] EDMS Jeffery Li RN RN Liset Quick RN RN dls Madonna Malin, Reg Reg gb Ale Kent, Reg Reg lg Anil Dye, KITCHEN STEWARD KITCHEN STEWARD Blanka Hernandez RN RN jc4 The chart was reviewed and I authenticate all verbal orders and agree with the evaluation and treatment provided.Corrections: (The following items were deleted from the chart) 11:19 11:16 ETHYL ALCOHOL (ETHANOL)+LAB ordered. EDMS EDMS Attachments: 12:06 [facility] Payment Agreement lg 04/20 13:30 T-Sheet-- Draft Copy gb 13:30 ECG/EKG gb Chart Complete MTDD
== END 2016-04-19 13:20 | disposition home or self-care (01) ==
LOC: M ED 10:47
DX: R10.9 Unspecified abdominal pain (principal); Z72.0 Tobacco use
CPT/HCPCS: 74022; 80048; 80076; 81001; 82150; 83690; 85025; 85610; 93005; 96361; 96374; 96375; 99284; G0480; J1885; J2405

== ENCOUNTER 2016-04-21 16:38 | Emergency (ER) | payer BC, OTHER ==
[2016-04-21] MEDS ORDERED: GASTROGRAFIN SOLUTION 30ML (Q9963) As Ordered ONE (18:27)
[2016-04-21] MEDS ORDERED: GI COCKTAIL 50ML BTL(HYOSCYAMINE/MAALOX/LIDOCAINE VISCOUS)(1:3:1) As Ordered ONE (18:27)
[2016-04-21 18:28] LABS: BASO # 0.1 K/mm3 (0.0-0.2); BASO % 0.9 % (0.0-1.0); EOS # 0.1 K/mm3 (0.0-0.50); EOS % 0.8 % (0.0-3.0); LARGE UNSTAINED CELL # 0.4 K/mm3 (0.0-0.4); LARGE UNSTAINED CELL % 2.8 % (0.0-4.0); LYMPH # 2.2 K/mm3 (1.5-4.5); LYMPH % 13.7 % (24.0-44.0); MEAN CORPUSCULAR HEMOGLOBIN 30.7 pg (27.0-33.0); MEAN CORPUSCULAR HGB CONC 34.3 g/dl (32.0-36.5); MEAN CORPUSCULAR VOLUME 89.7 fl (80.0-96.0); MONO % 7.1 % (0.0-5.0); NEUTROPHILS # 10.2 K/mm3 (1.8-7.7); NEUTROPHILS % 74.7 % (36.0-66.0); PLATELET COUNT, AUTOMATED 269 k/mm3 (150-450); RED CELL DISTRIBUTION WIDTH 13.6 % (11.5-14.5); WHITE BLOOD COUNT 13.6 K/mm3 (4.0-10.0)
[2016-04-21] MEDS ORDERED: SUCRALFATE 1 GM TAB As Ordered ONE (18:30)
[2016-04-21 18:52] LABS: ALBUMIN 3.9 GM/DL (3.2-5.2); ALBUMIN/GLOBULIN RATIO 1.18 (1.00-1.93); ALKALINE PHOSPHATASE 93 U/L (45-117); ALT/SGPT 37 U/L (12-78); AMYLASE 65 U/L (25-115); ANION GAP 6 MEQ/L (8-16); AST/SGOT 15 U/L (15-37); BILIRUBIN,DIRECT 0.4 MG/DL (0.0-0.2); BILIRUBIN,TOTAL 0.9 MG/DL (0.2-1.0); BLOOD UREA NITROGEN 15 MG/DL (7-18); CARBON DIOXIDE LEVEL 33 MEQ/L (21-32); CHLORIDE LEVEL 97 MEQ/L (98-107); GLOMERULAR FILTRATION RATE > 60.0 (>56); GLUCOSE, FASTING 109 MG/DL (70-105); POTASSIUM SERUM 3.9 MEQ/L (3.5-5.1); SODIUM LEVEL 136 MEQ/L (136-145); TOTAL PROTEIN 7.2 GM/DL (6.4-8.2)
[2016-04-21] MEDS ORDERED: ISOVUE-370 76% 100ML VIAL (Q9967) As Ordered ONE (19:54)
--- NOTE | 2016-04-21 21:10 | REPUSA ---
CLINICAL HISTORY: Epigastric pain TECHNIQUE : A CT of the abdomen and pelvis was performed following the administration of oral and int ravenous contrast from the level of the heart to the proximal femoral diaphyses. Multiplanar reformat s were also obtained in coronal and sagittal projections. COMPARISON: None FINDINGS: LOWER CHEST: The lung bases are clear. Heart is normal in size. No pleural or pericardial effusion is seen. LIVER: The liver is normal in size and contour with multiple cysts and left and right lobes measuring up to 4.8 cm in segment 6. The portal and hepatic veins are patent. BILIARY SYSTEM: No intrahepatic biliary ductal dilatation is seen. The common duct is normal in calib er. The gallbladder is unremarkable with no focal or diffuse wall thickening seen. No pericholecystic fluid is seen. No calcified biliary calculi are identified. PANCREAS: The pancreas is normal in size, contour and density. No solid or cystic pancreatic mass is seen. No pancreatic duct dilatation is seen. SPLEEN: The spleen is normal in size and without focal lesion. ADRENALS: The adrenal glands are unremarkable. KIDNEYS/URETERS: The kidneys are normal in size and enhance normally. No calcified renal or ureteral calculi are seen. No suspicious renal mass or hydronephrosis is seen. The ureters are not dilated. URINARY BLADDER: The urinary bladder is unremarkable without calcified stone, wall thickening or dive rticula seen. PROSTATE/SEMINAL VESICLES: Prostatomegaly measuring 3.4 x 4.8 cm with central calcifications of corpo ra amylacea. Seminal vesicles unremarkable. AORTA AND ILIAC ARTERIES: No aneurysmal dilatation of the aorta or iliac arteries is seen. LYMPH NODES: No enlarged adenopathy. Nonenlarged 8 x 6 mm distal perigastric node noted on axial CT 4 9. GASTROINTESTINAL: Stomach demonstrates thickening of the distal antrum. Duodenum, small bowel, append ix on axial images [id number] and large bowel normal in caliber. PERITONEUM/RETROPERITONEUM: No ascites or suspicious fluid collection, extraluminal air, or suspiciou s mass. ABDOMINAL/PELVIC WALL: No hernia is identified. OSSEOUS STRUCTURES/SOFT TISSUES: No suspicious osseous lesion, acute fracture, or soft tissue abnorma lity. Multilevel mild endplate degenerative sclerotic changes, posterior L5-S1 disc space narrowing w ith disc bulge. Spinal canal appears grossly patent. IMPRESSION : 1. Distal gastric antral thickening noted which may be inflammatory from gastritis although endoscop y is recommended to exclude malignant features. 2. A nonenlarged distal perigastric node is noted which is more commonly benign reactive although in the setting of an established malignancy metastasis is not excluded. 3. Multiple hepatic cysts measuring up to 4.8 cm segment 6. 4. Mild prostatomegaly.
--- NOTE | 2016-04-21 21:48 | EDDOCDS ---
Nurse's Notes [facility] Name: Bladimir Anna Age: 55 yrs Sex: Male : 1960 Arrival Date: 04/21/2016 Time: 16:38 Bed I9 Private MD: Johana Cedeno Diagnosis: Epigastric pain-? malignancy noted on CT by radiologist Presentation: 04/21 16:53 Presenting complaint: Patient states: mid upper abd 6-9/10 pain. Some n/v. Diarrhea ttb improved. Seen here Tuesday. No f/u with PCP -- no improvement. Pain started this morning again after eating a banana....unable to eat much this week. Adult Sepsis Screening: The patient does not have new or worsening altered mentation. Patient's respiratory rate is less than 22. Systolic blood pressure is greater than 100. Patient has a qSOFA score of 0- Negative Sepsis Screen. Suicide/Homicide risk assessment- the patient denies having any suicidal and/or homicidal ideations and does not present with any other emotional, behavioral or mental health complaints. Status: Patient is not a rehabilitation services manager or dependent. Transition of care: patient was not received from another setting of care. 16:53 Acuity: AKANKSHA Level 3 ttb 16:53 Method Of Arrival: Walkin/Carried/Asstd ttb Triage Assessment: 16:57 General: Appears slender, well nourished, well groomed, Behavior is appropriate for ttb age, cooperative, pleasant. Pain: Location: mid upper abd Pain currently is 6 out of 10 on a pain scale. HIV screening NA for this visit Offered previously. Neurological: Level of Consciousness is awake, alert. Cardiovascular: Chest pain is denied. Respiratory: No deficits noted. Airway is patent Respiratory effort is even, unlabored, Denies cough, shortness of breath. GI: Reports upper abdominal pain, nausea, vomiting, Denies constipation, diarrhea. Derm: Skin is normal. Injury Description: No known injury. Historical: - Allergies: no known allergies; - Home Meds: 1. Reglan 10 mg Oral tab 1 tab once daily (Last dose: 04/20/2016 22:00) 2. naproxen 500 mg Oral tab (Last dose: 04/21/2016) - PMHx: none; - PSHx: none; - Social history: Smoking status: Patient uses tobacco products, heavy tobacco smoker. Patient/guardian denies using alcohol, street drugs, No barriers to communication noted, The patient speaks fluent [place], Speaks appropriately for age. - Family history: Not pertinent. - : The pt / caregiver states he / she is not on anticoagulants. Home medication list is obtained from the patient. - Exposure Risk Screening:: None identified. Screenin:41 Screening information is obtained from the patient. Fall risk: No risks identified. kc3 Assistance ADL's: requires no assistance with activities of daily living. Abuse/DV Screen: The patient / caregiver reports he/she is: not in a situation that causes fear, pain or injury. Nutritional screening: No deficits noted. home support is adequate. 21:30 Advance Directives: Currently, there is no health care proxy. ck1 Assessment: 18:41 General: Appears in no apparent distress, comfortable, Behavior is appropriate for age, kc3 cooperative. Pain: Location: abdomen. Neurological: Level of Consciousness is awake, alert, obeys commands, Oriented to person, place, time. Respiratory: Respiratory effort is even, unlabored. GI: Abdomen is flat, Abd is soft X 4 quads Abd is tender to palpation X 4 quads. Reports epigastric pain. Derm: Skin is pink, warm & dry. 19:44 General: Appears in no apparent distress, comfortable, Behavior is appropriate for age, ck1 cooperative. Pain: Denies pain. Neurological: Level of Consciousness is awake, alert, obeys commands, Oriented to person, place, time. Respiratory: Respiratory effort is unlabored. GI: Reports abdominal pain with palpation Denies nausea, vomiting. Derm: Skin is pink, warm & dry. 20:14 General: Appears in no apparent distress, comfortable, Behavior is appropriate for age, ck1 cooperative. Pain: Denies pain. Neurological: Level of Consciousness is awake, alert, obeys commands, Oriented to person, place, time. Respiratory: Respiratory effort is unlabored. GI: No deficits noted. Derm: Skin is pink, warm & dry. 21:22 General: Appears in no apparent distress, comfortable, to be sleeping. Respiratory: ck1 Respiratory effort is unlabored. GI: No deficits noted. Derm: Skin is pink, warm & dry. 21:45 General: Appears in no apparent distress, comfortable, Behavior is appropriate for age, ck1 cooperative. Pain: Denies pain. Neurological: Level of Consciousness is awake, alert, obeys commands, Oriented to person, place, time. Respiratory: No deficits noted. GI: Denies nausea, vomiting, pain. Derm: Skin is intact, Skin is pink, warm & dry. Vital Signs: 16:40 BP 128 / 83; Pulse 73; Resp 16; Temp 97(O); Pulse Ox 100% ; Weight 63.05 kg; Height 5 cmb ft. 11 in. (180.34 cm); Pain 9/10; 21:29 BP 123 / 80; Pulse 73; Resp 18; Temp 96.7(O); Pulse Ox 97% on R/A; Pain 0/10; ck1 16:40 Body Mass Index 19.39 (63.05 kg, 180.34 cm) cmb Vitals: 16:40 Log In Time: April 21, 2016 at 16:38. cmb ED Course: 16:40 Patient visited by Gema Warren. cmb 16:40 Johana Cedeno is Private Physician. cmb 16:40 Patient moved to Waiting cmb 16:42 Patient moved to Pre RCE cmb 16:56 Triage Initiated ttb 16:59 Patient visited by Radha Kate RN. ttb 17:27 Patient moved to Triage 2 mlb1 18:05 Diego Eli PA is PHCP. btw 18:05 Byron Gregorio MD is Attending Physician. btw 18:05 Patient visited by Diego Eli PA. btw 18:18 Liver Profile Sent. rs6 18:18 Lipase Sent. rs6 18:18 CBC with Diff Sent. rs6 18:18 Basic Metabolic Profile Sent. rs6 18:18 Amylase Sent. rs6 18:19 Inserted saline lock: 20 gauge in right antecubital area and blood collected. The mlb1 patient tolerated the procedure well. Labs drawn. (by ED staff). Sent per order to lab. 18:23 Patient moved to I9 / 22 mlb1 18:29 [facility] Payment Agreement was scanned into [employer] and attached to record. gjb 18:38 Patient visited by Niharika Ferreira RN. ck1 18:42 Patient visited by Bonnie Land RN. kc3 18:42 The patient / caregiver is instructed regarding the plan of care and ED course. kc3 19:41 Patient visited by Niharika Ferreira,KIRK. ck1 20:13 Patient visited by Niharika Ferreira,KIRK. ck1 20:44 Patient visited by Niharika Ferreira,KIRK. ck1 21:22 Patient visited by Niharika Ferreira,KIRK. ck1 21:31 CT ABD & PELVIS: IV and Oral Contrast Returned. EDMS 21:36 Sudhir Garcia is Referral Physician. btw 21:38 No procedures done that require assistance. ck1 Administered Medications: 18:35 Drug: Diatrizoate Meglumine & Sodium 10 ml [diatrizoate meglumine and diat.sodium 66 kc3 %-10 % oral solution (10 mL)] Route: PO; 18:40 Drug: GI Cocktail - (Alum-Mag Hydroxide-Simeth Suspension 225 mg-200 mg-25 mg/5 mL 30 kc3 ml, Lidocaine Liquid 2 % 10 ml, Hyoscyamine Liquid 10 ml) Route: PO; 18:40 Drug: Sucralfate 1 grams [sucralfate 1 gram tablet (1 tabs)] Route: PO; kc3 Order Results: Lab Order: Amylase; SPEC'M 04/21/16 18:18 Test: AMYLASE; Value: 65; Range: 25-115; Units: U/L; Status: F Lab Order: Basic Metabolic Profile; SPEC'M 04/21/16 18:18 Test: GLUCOSE, FASTING; Value: 109; Range: 70-105; Abnormal: Above high normal; Units: MG/DL; Status: F Test: BLOOD UREA NITROGEN; Value: 15; Range: 7-18; Units: MG/DL; Status: F Test: CREATININE FOR GFR; Value: 0.90; Range: 0.70-1.30; Units: MG/DL; Status: F Test: GLOMERULAR FILTRATION RATE; Value: > 60.0; Range: >56; Status: F Test: SODIUM LEVEL; Value: 136; Range: 136-145; Units: MEQ/L; Status: F Test: POTASSIUM SERUM; Value: 3.9; Range: 3.5-5.1; Units: MEQ/L; Status: F Test: CHLORIDE LEVEL; Value: 97; Range: 98-107; Abnormal: Below low normal; Units: MEQ/L; Status: F Test: CARBON DIOXIDE LEVEL; Value: 33; Range: 21-32; Abnormal: Above high normal; Units: MEQ/L; Status: F Test: ANION GAP; Value: 6; Range: 8-16; Abnormal: Below low normal; Units: MEQ/L; Status: F Test: CALCIUM LEVEL; Value: 9.0; Range: 8.5-10.1; Units: MG/DL; Status: F Test Note: ; Units are mL/min/1.73 m2 Chronic Kidney Disease Staging per NKF: Stage I & II GFR >=60 Normal to Mildly Decreased Stage III GFR 30-59 Moderately Decreased Stage IV GFR 15-29 Severely Decreased Stage V GFR <15 Very Little GFR Left ESRD GFR <15 on [facility] Lab Order: CBC with Diff; SPEC'M 04/21/16 18:18 Test: WHITE BLOOD COUNT; Value: 13.6; Range: 4.0-10.0; Abnormal: Above high normal; Units: K/mm3; Status: F Test: RED BLOOD COUNT; Value: 4.91; Range: 4.30-6.10; Units: M/mm3; Status: F Test: HEMOGLOBIN; Value: 15.1; Range: 14.0-18.0; Units: g/dl; Status: F Test: HEMATOCRIT; Value: 44.1; Range: 42.0-52.0; Units: %; Status: F Test: MEAN CORPUSCULAR VOLUME; Value: 89.7; Range: 80.0-96.0; Units: fl; Status: F Test: MEAN CORPUSCULAR HEMOGLOBIN; Value: 30.7; Range: 27.0-33.0; Units: pg; Status: F Test: MEAN CORPUSCULAR HGB CONC; Value: 34.3; Range: 32.0-36.5; Units: g/dl; Status: F Test: RED CELL DISTRIBUTION WIDTH; Value: 13.6; Range: 11.5-14.5; Units: %; Status: F Test: PLATELET COUNT, AUTOMATED; Value: 269; Range: 150-450; Units: k/mm3; Status: F Test: NEUTROPHILS %; Value: 74.7; Range: 36.0-66.0; Abnormal: Above high normal; Units: %; Status: F Test: LYMPH %; Value: 13.7; Range: 24.0-44.0; Abnormal: Below low normal; Units: %; Status: F Test: MONO %; Value: 7.1; Range: 0.0-5.0; Abnormal: Above high normal; Units: %; Status: F Test: EOS %; Value: 0.8; Range: 0.0-3.0; Units: %; Status: F Test: BASO %; Value: 0.9; Range: 0.0-1.0; Units: %; Status: F Test: LARGE UNSTAINED CELL %; Value: 2.8; Range: 0.0-4.0; Units: %; Status: F Test: NEUTROPHILS #; Value: 10.2; Range: 1.8-7.7; Abnormal: Above high normal; Units: K/mm3; Status: F Test: LYMPH #; Value: 2.2; Range: 1.5-4.5; Units: K/mm3; Status: F Test: MONO #; Value: 1.0; Range: 0.0-0.8; Abnormal: Above high normal; Units: K/mm3; Status: F Test: EOS #; Value: 0.1; Range: 0.0-0.50; Units: K/mm3; Status: F Test: BASO #; Value: 0.1; Range: 0.0-0.2; Units: K/mm3; Status: F Test: LARGE UNSTAINED CELL #; Value: 0.4; Range: 0.0-0.4; Units: K/mm3; Status: F Lab Order: Lipase; SPEC'M 04/21/16 18:18 Test: LIPASE; Value: 189; Range: 73-393; Units: U/L; Status: F Lab Order: Liver Profile; SPEC'M 04/21/16 18:18 Test: AST/SGOT; Value: 15; Range: 15-37; Units: U/L; Status: F Test: ALT/SGPT; Value: 37; Range: 12-78; Units: U/L; Status: F Test: ALKALINE PHOSPHATASE; Value: 93; Range: 45-117; Units: U/L; Status: F Test: BILIRUBIN,TOTAL; Value: 0.9; Range: 0.2-1.0; Units: MG/DL; Status: F Test: BILIRUBIN,DIRECT; Value: 0.4; Range: 0.0-0.2; Abnormal: Above high normal; Units: MG/DL; Status: F Test: TOTAL PROTEIN; Value: 7.2; Range: 6.4-8.2; Units: GM/DL; Status: F Test: ALBUMIN; Value: 3.9; Range: 3.2-5.2; Units: GM/DL; Status: F Test: ALBUMIN/GLOBULIN RATIO; Value: 1.18; Range: 1.00-1.93; Status: F Radiology Order: CT ABD & PELVIS: IV and Oral Contrast Test: CT ABD & PELVIS: IV and Oral Contrast REASON FOR EXAMINATION: epigastric pain; ; CLINICAL HISTORY: Epigastric pain; TECHNIQUE : A CT of the abdomen and pelvis was performed following the administration of oral and int; ravenous contrast from the level of the heart to the proximal femoral diaphyses. Multiplanar reformat; s were also obtained in coronal and sagittal projections.; COMPARISON: None; FINDINGS:; LOWER CHEST: The lung bases are clear. Heart is normal in size. No pleural or pericardial effusion is; seen.; LIVER: The liver is normal in size and contour with multiple cysts and left and right lobes measuring; up to 4.8 cm in segment 6. The portal and hepatic veins are patent.; BILIARY SYSTEM: No intrahepatic biliary ductal dilatation is seen. The common duct is normal in calib; er. The gallbladder is unremarkable with no focal or diffuse wall thickening seen. No pericholecystic; fluid is seen. No calcified biliary calculi are identified.; PANCREAS: The pancreas is normal in size, contour and density. No solid or cystic pancreatic mass is; seen. No pancreatic duct dilatation is seen.; SPLEEN: The spleen is normal in size and without focal lesion.; ADRENALS: The adrenal glands are unremarkable.; KIDNEYS/URETERS: The kidneys are normal in size and enhance normally. No calcified renal or ureteral; calculi are seen. No suspicious renal mass or hydronephrosis is seen. The ureters are not dilated.; URINARY BLADDER: The urinary bladder is unremarkable without calcified stone, wall thickening or dive; rticula seen.; PROSTATE/SEMINAL VESICLES: Prostatomegaly measuring 3.4 x 4.8 cm with central calcifications of corpo; ra amylacea. Seminal vesicles unremarkable.; AORTA AND ILIAC ARTERIES: No aneurysmal dilatation of the aorta or iliac arteries is seen.; LYMPH NODES: No enlarged adenopathy. Nonenlarged 8 x 6 mm distal perigastric node noted on axial CT 4; 9.; GASTROINTESTINAL: Stomach demonstrates thickening of the distal antrum. Duodenum, small bowel, append; ix on axial images 94-108 and large bowel normal in caliber.; PERITONEUM/RETROPERITONEUM: No ascites or suspicious fluid collection, extraluminal air, or suspiciou; s mass.; ABDOMINAL/PELVIC WALL: No hernia is identified.; OSSEOUS STRUCTURES/SOFT TISSUES: No suspicious osseous lesion, acute fracture, or soft tissue abnorma; lity. Multilevel mild endplate degenerative sclerotic changes, posterior L5-S1 disc space narrowing w; ith disc bulge. Spinal canal appears grossly patent.; IMPRESSION :; 1. Distal gastric antral thickening noted which may be inflammatory from gastritis although endoscop; y is recommended to exclude malignant features.; 2. A nonenlarged distal perigastric node is noted which is more commonly benign reactive although in; the setting of an established malignancy metastasis is not excluded.; 3. Multiple hepatic cysts measuring up to 4.8 cm segment 6.; 4. Mild prostatomegaly.; ; Outcome: 20:13 CT Study completed. ck1 21:37 Discharge ordered by Provider. btw 21:38 Discharge Assessment: Patient awake, alert and oriented x 3. No cognitive and/or ck1 functional deficits noted. Patient verbalized understanding of disposition instructions. patient administered narcotics - no. The following High Risk Discharge criteria are identified: None. Discharged to home ambulatory. Condition: stable. Property :Personal belongings accompany Pt. 21:45 Discharge instructions given to patient, Instructed on discharge instructions, follow ck1 up and referral plans. medication usage, Demonstrated understanding of instructions, medications, Pt was receptive of discharge instructions/ teaching. Prescriptions given X 1, Work note provided to patient. 21:46 Patient left the ED. ck1 Signatures: Dispatcher [facility] Center[facility] Davis RN RN mlb1 Niharika Ferreira RN RN ck1 Diego Eli PA PA btw Briana, Radha Hinson, RN RN ttb Bertha Syed, LEAD ADVISOR LEAD ADVISOR rs6 Bonnie Land,RN RN kc3 Cassidy Flanagan MTDD
--- NOTE | 2016-04-21 21:48 | EDDOCDS ---
Physician Documentation [facility] Name: Bladimir Anna Age: 55 yrs Sex: Male : 1960 Arrival Date: 04/21/2016 Time: 16:38 Bed I9 Private MD: Johana Cedeno Disposition: 04/21/16 21:37 Discharged to Home/Self Care. Impression: Epigastric pain - ? malignancy noted on CT by radiologist. - Condition is Stable. - Discharge Instructions: Gastritis, Adult, [id number]. - Prescriptions for Carafate 1 gram Oral Tablet - take 2 tablet by ORAL route every 12 hours take on an empty stomach, beginning on waking and last dose at bedtime; 100 tablet. - Medication Reconciliation, Local Pharmacy Hours, Work Release Form - 1 day form. - Follow up: Sudhir Garcia; When: 1 - 2 days; Reason: Further diagnostic work-up, Recheck today's complaints, Continuance of care. - Problem is new. - Symptoms are unchanged. Historical: - Allergies: no known allergies; - Home Meds: 1. Reglan 10 mg Oral tab 1 tab once daily (Last dose: 04/20/2016 22:00) 2. naproxen 500 mg Oral tab (Last dose: 04/21/2016) - PMHx: none; - PSHx: none; - Social history: Smoking status: Patient uses tobacco products, heavy tobacco smoker. Patient/guardian denies using alcohol, street drugs, No barriers to communication noted, The patient speaks fluent [place] Citizen, Speaks appropriately for age. - Family history: Not pertinent. - : The pt / caregiver states he / she is not on anticoagulants. Home medication list is obtained from the patient. - Exposure Risk Screening:: None identified. Vital Signs: 04/21 16:40 BP 128 / 83; Pulse 73; Resp 16; Temp 97(O); Pulse Ox 100% ; Weight 63.05 kg / 139 lbs; cmb Height 5 ft. 11 in. (180.34 cm); Pain 9/10; 21:29 BP 123 / 80; Pulse 73; Resp 18; Temp 96.7(O); Pulse Ox 97% on R/A; Pain 0/10; ck1 16:40 Body Mass Index 19.39 (63.05 kg, 180.34 cm) cmb MDM: 18:11 IV Saline Lock ordered. btw 18:11 GI Cocktail - (Alum-Mag Hydroxide-Simeth 30 ml, Lidocaine 10 ml, Hyoscyamine 10 ml) PO btw once; Pre-mixed 50mL unit dose ordered. 18:11 Sucralfate 1 grams PO once ordered. btw 18:12 Amylase Ordered. EDMS 18:12 Basic Metabolic Profile Ordered. EDMS 18:12 CBC with Diff Ordered. EDMS 18:12 Lipase Ordered. EDMS 18:12 Liver Profile Ordered. EDMS 18:13 CT ABD & PELVIS: IV and Oral Contrast Ordered. EDMS 18:13 NOTHING BY MOUTH+DIET ordered. EDMS 18:21 Diatrizoate Meglumine & Sodium Liquid 10 ml PO once; mix in 290cc of water, first cup mlb1 at 1835, second at 1905 ordered. 18:26 Financial registration complete. [facility] 18:29 [facility] Payment Agreement was scanned into [facility] and attached to record. gjb 18:56 Basic Metabolic Profile Reviewed. btw 18:56 CBC with Diff Reviewed. btw 18:56 Liver Profile Reviewed. btw 18:56 Amylase Reviewed. btw 18:56 Lipase Reviewed. btw Administered Medications: 18:35 Drug: Diatrizoate Meglumine & Sodium 10 ml [diatrizoate meglumine and diat.sodium 66 kc3 %-10 % oral solution (10 mL)] Route: PO; 18:40 Drug: GI Cocktail - (Alum-Mag Hydroxide-Simeth Suspension 225 mg-200 mg-25 mg/5 mL 30 kc3 ml, Lidocaine Liquid 2 % 10 ml, Hyoscyamine Liquid 10 ml) Route: PO; 18:40 Drug: Sucralfate 1 grams [sucralfate 1 gram tablet (1 tabs)] Route: PO; kc3 Signatures: Dispatcher [employer] EDPA Jacob Rogers RN RN mlb1 Niharika FerreiraRN RN ck1 Diego Eli PA PA btw Radha Kate RN RN ttb Bonnie Land RN RN kc3 Cassidy Flanagan [facility] The chart was reviewed and I authenticate all verbal orders and agree with the evaluation and treatment provided.Attachments: 18:29 [facility] Payment Agreement gjb MTDD
--- NOTE | 2016-04-23 22:48 | EDDOCDS ---
Physician Documentation [facility] Name: Bladimir Anna Age: 55 yrs Sex: Male : 1960 Arrival Date: 04/21/2016 Time: 16:38 Bed I9 Private MD: Johana Mayfield Disposition: 04/21/16 21:37 Discharged to Home/Self Care. Impression: Epigastric pain - ? malignancy noted on CT by radiologist. - Condition is Stable. - Discharge Instructions: Gastritis, Adult, [id number]. - Prescriptions for Carafate 1 gram Oral Tablet - take 2 tablet by ORAL route every 12 hours take on an empty stomach, beginning on waking and last dose at bedtime; 100 tablet. - Medication Reconciliation, Local Pharmacy Hours, Work Release Form - 1 day form. - Follow up: Sudhir Garcia; When: 1 - 2 days; Reason: Further diagnostic work-up, Recheck today's complaints, Continuance of care. - Problem is new. - Symptoms are unchanged. Historical: - Allergies: no known allergies; - Home Meds: 1. Reglan 10 mg Oral tab 1 tab once daily (Last dose: 04/20/2016 22:00) 2. naproxen 500 mg Oral tab (Last dose: 04/21/2016) - PMHx: none; - PSHx: none; - Social history: Smoking status: Patient uses tobacco products, heavy tobacco smoker. Patient/guardian denies using alcohol, street drugs, No barriers to communication noted, The patient speaks fluent Serbian, Speaks appropriately for age. - Family history: Not pertinent. - : The pt / caregiver states he / she is not on anticoagulants. Home medication list is obtained from the patient. - Exposure Risk Screening:: None identified. Vital Signs: 04/21 16:40 BP 128 / 83; Pulse 73; Resp 16; Temp 97(O); Pulse Ox 100% ; Weight 63.05 kg / 139 lbs; cmb Height 5 ft. 11 in. (180.34 cm); Pain 9/10; 21:29 BP 123 / 80; Pulse 73; Resp 18; Temp 96.7(O); Pulse Ox 97% on R/A; Pain 0/10; ck1 16:40 Body Mass Index 19.39 (63.05 kg, 180.34 cm) cmb MDM: 18:11 IV Saline Lock ordered. btw 18:11 GI Cocktail - (Alum-Mag Hydroxide-Simeth 30 ml, Lidocaine 10 ml, Hyoscyamine 10 ml) PO btw once; Pre-mixed 50mL unit dose ordered. 18:11 Sucralfate 1 grams PO once ordered. btw 18:12 Amylase Ordered. EDMS 18:12 Basic Metabolic Profile Ordered. EDMS 18:12 CBC with Diff Ordered. EDMS 18:12 Lipase Ordered. EDMS 18:12 Liver Profile Ordered. EDMS 18:13 CT ABD & PELVIS: IV and Oral Contrast Ordered. EDMS 18:13 NOTHING BY MOUTH+DIET ordered. EDMS 18:21 Diatrizoate Meglumine & Sodium Liquid 10 ml PO once; mix in 290cc of water, first cup mlb1 at 1835, second at 1905 ordered. 18:26 Financial registration complete. gjb 18:29 [facility] Payment Agreement was scanned into [employer] and attached to record. gjb 18:56 Basic Metabolic Profile Reviewed. btw 18:56 CBC with Diff Reviewed. btw 18:56 Liver Profile Reviewed. btw 18:56 Amylase Reviewed. btw 18:56 Lipase Reviewed. btw 01 11:50 T-Sheet-- Draft Copy was scanned into [employer] and attached to record. gb 11:51 Radiology Report was scanned into [employer] and attached to record. gb 13:01 ED course: dr mayfield and keerthi faxed formal report of ct abd/p for fu mlg. ml Administered Medications: 04/21 18:35 Drug: Diatrizoate Meglumine & Sodium 10 ml [diatrizoate meglumine and diat.sodium 66 kc3 %-10 % oral solution (10 mL)] Route: PO; 18:40 Drug: GI Cocktail - (Alum-Mag Hydroxide-Simeth Suspension 225 mg-200 mg-25 mg/5 mL 30 kc3 ml, Lidocaine Liquid 2 % 10 ml, Hyoscyamine Liquid 10 ml) Route: PO; 18:40 Drug: Sucralfate 1 grams [sucralfate 1 gram tablet (1 tabs)] Route: PO; kc3 Signatures: Dispatcher [employer] EDMS Byron Gregorio MD MD ml Barnhardt, Gloria, Reg Reg gb Jacob Rogers RN RN mlb1 Niharika Ferreira,RN RN ck1 Diego Eli PA PA btw Radha Kate RN RN ttb Bonnie Land RN RN kc3 Cassidy Flanagan The chart was reviewed and I authenticate all verbal orders and agree with the evaluation and treatment provided.Attachments: 18:29 [facility] Payment Agreement gjb 04/22 11:50 T-Sheet-- Draft Copy gb Chart Complete MTDD
--- NOTE | 2016-04-23 22:48 | EDDOCDS ---
Nurse's Notes [facility] Name: Bladimir Anna Age: 55 yrs Sex: Male : 1960 Arrival Date: 04/21/2016 Time: 16:38 Bed I9 Private MD: Johana Cedeno Diagnosis: Epigastric pain-? malignancy noted on CT by radiologist Presentation: 04/21 16:53 Presenting complaint: Patient states: mid upper abd 6-9/10 pain. Some n/v. Diarrhea ttb improved. Seen here Tuesday. No f/u with PCP -- no improvement. Pain started this morning again after eating a banana....unable to eat much this week. Adult Sepsis Screening: The patient does not have new or worsening altered mentation. Patient's respiratory rate is less than 22. Systolic blood pressure is greater than 100. Patient has a qSOFA score of 0- Negative Sepsis Screen. Suicide/Homicide risk assessment- the patient denies having any suicidal and/or homicidal ideations and does not present with any other emotional, behavioral or mental health complaints. Status: Patient is not a service order clerk or dependent. Transition of care: patient was not received from another setting of care. 16:53 Acuity: AKANKSHA Level 3 ttb 16:53 Method Of Arrival: Walkin/Carried/Asstd ttb Triage Assessment: 16:57 General: Appears slender, well nourished, well groomed, Behavior is appropriate for ttb age, cooperative, pleasant. Pain: Location: mid upper abd Pain currently is 6 out of 10 on a pain scale. HIV screening NA for this visit Offered previously. Neurological: Level of Consciousness is awake, alert. Cardiovascular: Chest pain is denied. Respiratory: No deficits noted. Airway is patent Respiratory effort is even, unlabored, Denies cough, shortness of breath. GI: Reports upper abdominal pain, nausea, vomiting, Denies constipation, diarrhea. Derm: Skin is normal. Injury Description: No known injury. Historical: - Allergies: no known allergies; - Home Meds: 1. Reglan 10 mg Oral tab 1 tab once daily (Last dose: 04/20/2016 22:00) 2. naproxen 500 mg Oral tab (Last dose: 04/21/2016) - PMHx: none; - PSHx: none; - Social history: Smoking status: Patient uses tobacco products, heavy tobacco smoker. Patient/guardian denies using alcohol, street drugs, No barriers to communication noted, The patient speaks fluent Greenlandic, Speaks appropriately for age. - Family history: Not pertinent. - : The pt / caregiver states he / she is not on anticoagulants. Home medication list is obtained from the patient. - Exposure Risk Screening:: None identified. Screenin:41 Screening information is obtained from the patient. Fall risk: No risks identified. kc3 Assistance ADL's: requires no assistance with activities of daily living. Abuse/DV Screen: The patient / caregiver reports he/she is: not in a situation that causes fear, pain or injury. Nutritional screening: No deficits noted. home support is adequate. 21:30 Advance Directives: Currently, there is no health care proxy. ck1 Assessment: 18:41 General: Appears in no apparent distress, comfortable, Behavior is appropriate for age, kc3 cooperative. Pain: Location: abdomen. Neurological: Level of Consciousness is awake, alert, obeys commands, Oriented to person, place, time. Respiratory: Respiratory effort is even, unlabored. GI: Abdomen is flat, Abd is soft X 4 quads Abd is tender to palpation X 4 quads. Reports epigastric pain. Derm: Skin is pink, warm & dry. 19:44 General: Appears in no apparent distress, comfortable, Behavior is appropriate for age, ck1 cooperative. Pain: Denies pain. Neurological: Level of Consciousness is awake, alert, obeys commands, Oriented to person, place, time. Respiratory: Respiratory effort is unlabored. GI: Reports abdominal pain with palpation Denies nausea, vomiting. Derm: Skin is pink, warm & dry. 20:14 General: Appears in no apparent distress, comfortable, Behavior is appropriate for age, ck1 cooperative. Pain: Denies pain. Neurological: Level of Consciousness is awake, alert, obeys commands, Oriented to person, place, time. Respiratory: Respiratory effort is unlabored. GI: No deficits noted. Derm: Skin is pink, warm & dry. 21:22 General: Appears in no apparent distress, comfortable, to be sleeping. Respiratory: ck1 Respiratory effort is unlabored. GI: No deficits noted. Derm: Skin is pink, warm & dry. 21:45 General: Appears in no apparent distress, comfortable, Behavior is appropriate for age, ck1 cooperative. Pain: Denies pain. Neurological: Level of Consciousness is awake, alert, obeys commands, Oriented to person, place, time. Respiratory: No deficits noted. GI: Denies nausea, vomiting, pain. Derm: Skin is intact, Skin is pink, warm & dry. Vital Signs: 16:40 BP 128 / 83; Pulse 73; Resp 16; Temp 97(O); Pulse Ox 100% ; Weight 63.05 kg; Height 5 cmb ft. 11 in. (180.34 cm); Pain 9/10; 21:29 BP 123 / 80; Pulse 73; Resp 18; Temp 96.7(O); Pulse Ox 97% on R/A; Pain 0/10; ck1 16:40 Body Mass Index 19.39 (63.05 kg, 180.34 cm) cmb Vitals: 16:40 Log In Time: April 21, 2016 at 16:38. cmb ED Course: 16:40 Patient visited by Gema Warren. cmb 16:40 Johana Cedeno is Private Physician. cmb 16:40 Patient moved to Waiting cmb 16:42 Patient moved to Pre RCE cmb 16:56 Triage Initiated ttb 16:59 Patient visited by Radha Kate RN. ttb 17:27 Patient moved to Triage 2 mlb1 18:05 Diego Eli PA is PHCP. btw 18:05 Byron Gregorio MD is Attending Physician. btw 18:05 Patient visited by Diego Eli PA. btw 18:18 Liver Profile Sent. rs6 18:18 Lipase Sent. rs6 18:18 CBC with Diff Sent. rs6 18:18 Basic Metabolic Profile Sent. rs6 18:18 Amylase Sent. rs6 18:19 Inserted saline lock: 20 gauge in right antecubital area and blood collected. The mlb1 patient tolerated the procedure well. Labs drawn. (by ED staff). Sent per order to lab. 18:23 Patient moved to I9 / 22 mlb1 18:29 [facility] [place] was scanned into [employer] and attached to record. gjb 18:38 Patient visited by Niharika Ferreira RN. ck1 18:42 Patient visited by Bonnie Land RN. kc3 18:42 The patient / caregiver is instructed regarding the plan of care and ED course. kc3 19:41 Patient visited by Niharika Ferreira,KIRK. ck1 20:13 Patient visited by Niharika Ferreira,KIRK. ck1 20:44 Patient visited by Niharika Ferreira,KIRK. ck1 21:22 Patient visited by Niharika Ferreira,KIRK. ck1 21:31 CT ABD & PELVIS: IV and Oral Contrast Returned. EDMS 21:36 Sudhir Garcia is Referral Physician. btw 21:38 No procedures done that require assistance. ck1 04/22 11:50 T-Sheet-- Draft Copy was scanned into [employer] and attached to record. gb 11:51 Radiology Report was scanned into [employer] and attached to record. gb Administered Medications: 04/21 18:35 Drug: Diatrizoate Meglumine & Sodium 10 ml [diatrizoate meglumine and diat.sodium 66 kc3 %-10 % oral solution (10 mL)] Route: PO; 18:40 Drug: GI Cocktail - (Alum-Mag Hydroxide-Simeth Suspension 225 mg-200 mg-25 mg/5 mL 30 kc3 ml, Lidocaine Liquid 2 % 10 ml, Hyoscyamine Liquid 10 ml) Route: PO; 18:40 Drug: Sucralfate 1 grams [sucralfate 1 gram tablet (1 tabs)] Route: PO; kc3 Order Results: Lab Order: Amylase; SPEC'M 04/21/16 18:18 Test: AMYLASE; Value: 65; Range: 25-115; Units: U/L; Status: F Lab Order: Basic Metabolic Profile; SPEC'M 04/21/16 18:18 Test: GLUCOSE, FASTING; Value: 109; Range: 70-105; Abnormal: Above high normal; Units: MG/DL; Status: F Test: BLOOD UREA NITROGEN; Value: 15; Range: 7-18; Units: MG/DL; Status: F Test: CREATININE FOR GFR; Value: 0.90; Range: 0.70-1.30; Units: MG/DL; Status: F Test: GLOMERULAR FILTRATION RATE; Value: > 60.0; Range: >56; Status: F Test: SODIUM LEVEL; Value: 136; Range: 136-145; Units: MEQ/L; Status: F Test: POTASSIUM SERUM; Value: 3.9; Range: 3.5-5.1; Units: MEQ/L; Status: F Test: CHLORIDE LEVEL; Value: 97; Range: 98-107; Abnormal: Below low normal; Units: MEQ/L; Status: F Test: CARBON DIOXIDE LEVEL; Value: 33; Range: 21-32; Abnormal: Above high normal; Units: MEQ/L; Status: F Test: ANION GAP; Value: 6; Range: 8-16; Abnormal: Below low normal; Units: MEQ/L; Status: F Test: CALCIUM LEVEL; Value: 9.0; Range: 8.5-10.1; Units: MG/DL; Status: F Test Note: ; Units are mL/min/1.73 m2 Chronic Kidney Disease Staging per NKF: Stage I & II GFR >=60 Normal to Mildly Decreased Stage III GFR 30-59 Moderately Decreased Stage IV GFR 15-29 Severely Decreased Stage V GFR <15 Very Little GFR Left ESRD GFR <15 on SLITTER OPERATOR Lab Order: CBC with Diff; SPEC'M 04/21/16 18:18 Test: WHITE BLOOD COUNT; Value: 13.6; Range: 4.0-10.0; Abnormal: Above high normal; Units: K/mm3; Status: F Test: RED BLOOD COUNT; Value: 4.91; Range: 4.30-6.10; Units: M/mm3; Status: F Test: HEMOGLOBIN; Value: 15.1; Range: 14.0-18.0; Units: g/dl; Status: F Test: HEMATOCRIT; Value: 44.1; Range: 42.0-52.0; Units: %; Status: F Test: MEAN CORPUSCULAR VOLUME; Value: 89.7; Range: 80.0-96.0; Units: fl; Status: F Test: MEAN CORPUSCULAR HEMOGLOBIN; Value: 30.7; Range: 27.0-33.0; Units: pg; Status: F Test: MEAN CORPUSCULAR HGB CONC; Value: 34.3; Range: 32.0-36.5; Units: g/dl; Status: F Test: RED CELL DISTRIBUTION WIDTH; Value: 13.6; Range: 11.5-14.5; Units: %; Status: F Test: PLATELET COUNT, AUTOMATED; Value: 269; Range: 150-450; Units: k/mm3; Status: F Test: NEUTROPHILS %; Value: 74.7; Range: 36.0-66.0; Abnormal: Above high normal; Units: %; Status: F Test: LYMPH %; Value: 13.7; Range: 24.0-44.0; Abnormal: Below low normal; Units: %; Status: F Test: MONO %; Value: 7.1; Range: 0.0-5.0; Abnormal: Above high normal; Units: %; Status: F Test: EOS %; Value: 0.8; Range: 0.0-3.0; Units: %; Status: F Test: BASO %; Value: 0.9; Range: 0.0-1.0; Units: %; Status: F Test: LARGE UNSTAINED CELL %; Value: 2.8; Range: 0.0-4.0; Units: %; Status: F Test: NEUTROPHILS #; Value: 10.2; Range: 1.8-7.7; Abnormal: Above high normal; Units: K/mm3; Status: F Test: LYMPH #; Value: 2.2; Range: 1.5-4.5; Units: K/mm3; Status: F Test: MONO #; Value: 1.0; Range: 0.0-0.8; Abnormal: Above high normal; Units: K/mm3; Status: F Test: EOS #; Value: 0.1; Range: 0.0-0.50; Units: K/mm3; Status: F Test: BASO #; Value: 0.1; Range: 0.0-0.2; Units: K/mm3; Status: F Test: LARGE UNSTAINED CELL #; Value: 0.4; Range: 0.0-0.4; Units: K/mm3; Status: F Lab Order: Lipase; SPEC'M 04/21/16 18:18 Test: LIPASE; Value: 189; Range: 73-393; Units: U/L; Status: F Lab Order: Liver Profile; SPEC'M 04/21/16 18:18 Test: AST/SGOT; Value: 15; Range: 15-37; Units: U/L; Status: F Test: ALT/SGPT; Value: 37; Range: 12-78; Units: U/L; Status: F Test: ALKALINE PHOSPHATASE; Value: 93; Range: 45-117; Units: U/L; Status: F Test: BILIRUBIN,TOTAL; Value: 0.9; Range: 0.2-1.0; Units: MG/DL; Status: F Test: BILIRUBIN,DIRECT; Value: 0.4; Range: 0.0-0.2; Abnormal: Above high normal; Units: MG/DL; Status: F Test: TOTAL PROTEIN; Value: 7.2; Range: 6.4-8.2; Units: GM/DL; Status: F Test: ALBUMIN; Value: 3.9; Range: 3.2-5.2; Units: GM/DL; Status: F Test: ALBUMIN/GLOBULIN RATIO; Value: 1.18; Range: 1.00-1.93; Status: F Radiology Order: CT ABD & PELVIS: IV and Oral Contrast Test: CT ABD & PELVIS: IV and Oral Contrast REASON FOR EXAMINATION: epigastric pain; ; CLINICAL HISTORY: Epigastric pain; TECHNIQUE : A CT of the abdomen and pelvis was performed following the administration of oral and int; ravenous contrast from the level of the heart to the proximal femoral diaphyses. Multiplanar reformat; s were also obtained in coronal and sagittal projections.; COMPARISON: None; FINDINGS:; LOWER CHEST: The lung bases are clear. Heart is normal in size. No pleural or pericardial effusion is; seen.; LIVER: The liver is normal in size and contour with multiple cysts and left and right lobes measuring; up to 4.8 cm in segment 6. The portal and hepatic veins are patent.; BILIARY SYSTEM: No intrahepatic biliary ductal dilatation is seen. The common duct is normal in calib; er. The gallbladder is unremarkable with no focal or diffuse wall thickening seen. No pericholecystic; fluid is seen. No calcified biliary calculi are identified.; PANCREAS: The pancreas is normal in size, contour and density. No solid or cystic pancreatic mass is; seen. No pancreatic duct dilatation is seen.; SPLEEN: The spleen is normal in size and without focal lesion.; ADRENALS: The adrenal glands are unremarkable.; KIDNEYS/URETERS: The kidneys are normal in size and enhance normally. No calcified renal or ureteral; calculi are seen. No suspicious renal mass or hydronephrosis is seen. The ureters are not dilated.; URINARY BLADDER: The urinary bladder is unremarkable without calcified stone, wall thickening or dive; rticula seen.; PROSTATE/SEMINAL VESICLES: Prostatomegaly measuring 3.4 x 4.8 cm with central calcifications of corpo; ra amylacea. Seminal vesicles unremarkable.; AORTA AND ILIAC ARTERIES: No aneurysmal dilatation of the aorta or iliac arteries is seen.; LYMPH NODES: No enlarged adenopathy. Nonenlarged 8 x 6 mm distal perigastric node noted on axial CT 4; 9.; GASTROINTESTINAL: Stomach demonstrates thickening of the distal antrum. Duodenum, small bowel, append; ix on axial images 94-108 and large bowel normal in caliber.; PERITONEUM/RETROPERITONEUM: No ascites or suspicious fluid collection, extraluminal air, or suspiciou; s mass.; ABDOMINAL/PELVIC WALL: No hernia is identified.; OSSEOUS STRUCTURES/SOFT TISSUES: No suspicious osseous lesion, acute fracture, or soft tissue abnorma; lity. Multilevel mild endplate degenerative sclerotic changes, posterior L5-S1 disc space narrowing w; ith disc bulge. Spinal canal appears grossly patent.; IMPRESSION :; 1. Distal gastric antral thickening noted which may be inflammatory from gastritis although endoscop; y is recommended to exclude malignant features.; 2. A nonenlarged distal perigastric node is noted which is more commonly benign reactive although in; the setting of an established malignancy metastasis is not excluded.; 3. Multiple hepatic cysts measuring up to 4.8 cm segment 6.; 4. Mild prostatomegaly.; ; Outcome: 20:13 CT Study completed. ck1 21:37 Discharge ordered by Provider. btw 21:38 Discharge Assessment: Patient awake, alert and oriented x 3. No cognitive and/or ck1 functional deficits noted. Patient verbalized understanding of disposition instructions. patient administered narcotics - no. The following High Risk Discharge criteria are identified: None. Discharged to home ambulatory. Condition: stable. Property :Personal belongings accompany Pt. 21:45 Discharge instructions given to patient, Instructed on discharge instructions, follow ck1 up and referral plans. medication usage, Demonstrated understanding of instructions, medications, Pt was receptive of discharge instructions/ teaching. Prescriptions given X 1, Work note provided to patient. 21:46 Patient left the ED. ck1 Signatures: Dispatcher [employer] EDMS Madonna Malin, Reg Reg Jacob Kurtz RN RN mlb1 Niharika Ferreira,RN RN ck1 Diego Eli PA PA btw Gema Warren Teresa, RN RN ttb Bertha Syed, TOLL PATROLMAN TOLL PATROLMAN rs6 Bonnie Land RN RN kc3 Cassidy Flanagan Chart Complete MTDD
--- NOTE | 2016-04-23 22:48 | EDDOCDS ---
Physician Documentation [facility] Name: Bladimir Anna Age: 55 yrs Sex: Male : 1960 Arrival Date: 04/21/2016 Time: 16:38 Bed I9 Private MD: Johana Mayfield Disposition: 04/21/16 21:37 Discharged to Home/Self Care. Impression: Epigastric pain - ? malignancy noted on CT by radiologist. - Condition is Stable. - Discharge Instructions: Gastritis, Adult, [id number]. - Prescriptions for Carafate 1 gram Oral Tablet - take 2 tablet by ORAL route every 12 hours take on an empty stomach, beginning on waking and last dose at bedtime; 100 tablet. - Medication Reconciliation, Local Pharmacy Hours, Work Release Form - 1 day form. - Follow up: Sudhir Garcia; When: 1 - 2 days; Reason: Further diagnostic work-up, Recheck today's complaints, Continuance of care. - Problem is new. - Symptoms are unchanged. Historical: - Allergies: no known allergies; - Home Meds: 1. Reglan 10 mg Oral tab 1 tab once daily (Last dose: 04/20/2016 22:00) 2. naproxen 500 mg Oral tab (Last dose: 04/21/2016) - PMHx: none; - PSHx: none; - Social history: Smoking status: Patient uses tobacco products, heavy tobacco smoker. Patient/guardian denies using alcohol, street drugs, No barriers to communication noted, The patient speaks fluent Nepali, Speaks appropriately for age. - Family history: Not pertinent. - : The pt / caregiver states he / she is not on anticoagulants. Home medication list is obtained from the patient. - Exposure Risk Screening:: None identified. Vital Signs: 04/21 16:40 BP 128 / 83; Pulse 73; Resp 16; Temp 97(O); Pulse Ox 100% ; Weight 63.05 kg / 139 lbs; cmb Height 5 ft. 11 in. (180.34 cm); Pain 9/10; 21:29 BP 123 / 80; Pulse 73; Resp 18; Temp 96.7(O); Pulse Ox 97% on R/A; Pain 0/10; ck1 16:40 Body Mass Index 19.39 (63.05 kg, 180.34 cm) cmb MDM: 18:11 IV Saline Lock ordered. btw 18:11 GI Cocktail - (Alum-Mag Hydroxide-Simeth 30 ml, Lidocaine 10 ml, Hyoscyamine 10 ml) PO btw once; Pre-mixed 50mL unit dose ordered. 18:11 Sucralfate 1 grams PO once ordered. btw 18:12 Amylase Ordered. EDMS 18:12 Basic Metabolic Profile Ordered. EDMS 18:12 CBC with Diff Ordered. EDMS 18:12 Lipase Ordered. EDMS 18:12 Liver Profile Ordered. EDMS 18:13 CT ABD & PELVIS: IV and Oral Contrast Ordered. EDMS 18:13 NOTHING BY MOUTH+DIET ordered. EDMS 18:21 Diatrizoate Meglumine & Sodium Liquid 10 ml PO once; mix in 290cc of water, first cup mlb1 at 1835, second at 1905 ordered. 18:26 Financial registration complete. gjb 18:29 [facility] [place] was scanned into [employer] and attached to record. gjb 18:56 Basic Metabolic Profile Reviewed. btw 18:56 CBC with Diff Reviewed. btw 18:56 Liver Profile Reviewed. btw 18:56 Amylase Reviewed. btw 18:56 Lipase Reviewed. btw 01 11:50 T-Sheet-- Draft Copy was scanned into [employer] and attached to record. gb 11:51 Radiology Report was scanned into [employer] and attached to record. gb 13:01 ED course: dr mayfield and keerthi faxed formal report of ct abd/p for fu mlg. ml Administered Medications: 04/21 18:35 Drug: Diatrizoate Meglumine & Sodium 10 ml [diatrizoate meglumine and diat.sodium 66 kc3 %-10 % oral solution (10 mL)] Route: PO; 18:40 Drug: GI Cocktail - (Alum-Mag Hydroxide-Simeth Suspension 225 mg-200 mg-25 mg/5 mL 30 kc3 ml, Lidocaine Liquid 2 % 10 ml, Hyoscyamine Liquid 10 ml) Route: PO; 18:40 Drug: Sucralfate 1 grams [sucralfate 1 gram tablet (1 tabs)] Route: PO; kc3 Signatures: Dispatcher [employer] EDMS Byron Gregorio MD MD ml Barnhardt, Gloria, Reg Reg gb Jacob Rogers RN RN mlb1 Niharika Ferreira,RN RN ck1 Diego Eli PA PA btw Radha Kate RN RN ttb Bonnie Land RN RN kc3 Cassidy Flanagan The chart was reviewed and I authenticate all verbal orders and agree with the evaluation and treatment provided.Attachments: 18:29 [facility] Payment Agreement gjb 04/22 11:50 T-Sheet-- Draft Copy gb Chart Complete MTDD
== END 2016-04-21 21:46 | disposition home or self-care (01) ==
LOC: M ED 16:38
DX: K29.00 Acute gastritis without bleeding (principal); R93.3 Abnormal findings on diagnostic imaging of other parts of digestive tract; R93.2 Abnormal findings on diagnostic imaging of liver and biliary tract; Z72.0 Tobacco use; Z79.899 Other long term (current) drug therapy
CPT/HCPCS: 36415; 74177; 80048; 80076; 82150; 83690; 85025; 99284; Q9963; Q9967

== ENCOUNTER → 2016-05-11 | Outpatient (CLI) | payer BC, OTHER ==
[2016-05-11 10:56] LABS: MEAN CORPUSCULAR HEMOGLOBIN 30.7 pg (27.0-33.0); MEAN CORPUSCULAR HGB CONC 32.2 g/dl (32.0-36.5); MEAN CORPUSCULAR VOLUME 95.5 fl (80.0-96.0); RED CELL DISTRIBUTION WIDTH 14.5 % (11.5-14.5); WHITE BLOOD COUNT 7.4 K/mm3 (4.0-10.0)
[2016-05-11 11:30] LABS: ALBUMIN 3.7 GM/DL (3.2-5.2); ALBUMIN/GLOBULIN RATIO 1.32 (1.00-1.93); ALKALINE PHOSPHATASE 83 U/L (45-117); ALT/SGPT 30 U/L (12-78); ANION GAP 5 MEQ/L (8-16); AST/SGOT 21 U/L (15-37); BILIRUBIN,TOTAL 0.2 MG/DL (0.2-1.0); BLOOD UREA NITROGEN 15 MG/DL (7-18); CALCIUM LEVEL 8.7 MG/DL (8.5-10.1); CARBON DIOXIDE LEVEL 30 MEQ/L (21-32); CHLORIDE LEVEL 106 MEQ/L (98-107); CHOLESTEROL LEVEL 167 MG/DL (<200); CREATININE FOR GFR 0.84 MG/DL (0.70-1.30); GLOMERULAR FILTRATION RATE > 60.0 (>56); GLUCOSE, FASTING 82 MG/DL (70-105); POTASSIUM SERUM 4.3 MEQ/L (3.5-5.1); SODIUM LEVEL 141 MEQ/L (136-145); TOTAL PROTEIN 6.5 GM/DL (6.4-8.2); TRIGLYCERIDES LEVEL 130 MG/DL (<150)
--- NOTE | 2016-05-12 02:15 | REP ---
Clinical: Anemia. Technique: PA and lateral. Comparison: 07/15/2015. Findings: No focal consolidation, effusion, or pneumothorax. Mediastinum and cardiac silhouette are normal. Skeletal structures intact. Impression: No acute cardiopulmonary process appreciated. Signed by Ruddy Valles MD 05/12/2016 02:07 A
--- NOTE | 2016-05-12 23:04 | ECGEPIP ---
Stationary ECG Study [facility] Test Date: 2016-05-11 Pat Name: JOSE MIGUEL HERNANDEZ Department: Room: - Gender: M Rnp: LAURENT : 1960 Requested By: Johana Spicer Order Number: [id number] Reading MD: Noris Ng Measurements Intervals [place] Rate: 72 P: 87 WI: 163 QRS: 42 QRSD: 95 T: 44 QT: 364 QTc: 401 Interpretive Statements SINUS RHYTHM TALL T-WAVES, SUGGESTS HYPERKALEMIA T WAVE ABNORMALITIES NEW SINCE 04/19/16 Electronically Signed On 05-12-2016 23:04:01 EST by Noris Ng
== END ==
LOC: M LAB 10:09
PROVIDERS: ATTEND Family Medicine
DX: D64.9 Anemia, unspecified (principal)

== ENCOUNTER → 2016-08-11 | Outpatient (CLI) | payer BC, OTHER ==
[~2016-08-11] VITALS: Ht 182.9 cm; Wt 66.7 kg
[~2016-08-11] MED LIST: LIDOCAINE 2% INJ 100 MG/5 ML SDV (FOR ANES.) As Ordered ONE; NS 1,000 ML IV ONE; PROPOFOL 500 MG/50 ML VIAL As Ordered ONE
--- NOTE | 2016-08-11 10:06 | ROOR ---
Patient Name: Bladimir Anna Procedure Date: 08/11/2016 9:47 AM Date of : 1960 Age: 55 Room: [facility] Gender: Male Note Status: Finalized Procedure: Upper GI endoscopy + Biopsies Indications: Abnormal CT of the GI tract Providers: Sudhir Garcia MD Referring MD: GIOVANNI NAJERA MD Requesting Provider: Medicines: Monitored Anesthesia Care Complications: No immediate complications. Procedure: Pre-Anesthesia Assessment: - The heart rate, respiratory rate, oxygen saturations, blood pressure, adequacy of pulmonary ventilation, and response to care were monitored throughout the procedure. The Endoscope was introduced through the mouth, and advanced to the second part of duodenum. The upper GI endoscopy was accomplished without difficulty. The patient tolerated the procedure well. Findings: The Z-line was regular and was found 40 cm from the incisors. A medium-sized hiatal hernia was present. A medium scar was found at the incisura. Adjacent mucosal findings include edema, erythema and inflammation. Biopsies were taken with a cold forceps for histology. The exam of the duodenum was otherwise normal. The exam was otherwise without abnormality. Impression: - Z-line regular, 40 cm from the incisors. - Medium-sized hiatal hernia. - Scar in the incisura. Biopsied. - The examination was otherwise normal. Recommendation: - Await pathology results. - Discharge patient to home. - Continue present medications. - Telephone GI clinic for pathology results in 1 week. - Return to referring physician. - The findings and recommendations were discussed with the patient's family. Sudhir Garcia MD Sudhir Garcia MD 08/11/2016 10:06:37 AM This report has been signed electronically. Number of Addenda: 0 Note Initiated On: 08/11/2016 9:47 AM Estimated Blood Loss: Estimated blood loss: none.
[2016-08-11 10:35] VITALS: BP 135/93
== END | disposition home or self-care (01) ==
LOC: M OPP 08:49
PROVIDERS: ATTEND Internal Medicine Gastroenterology
DX: R93.3 Abnormal findings on diagnostic imaging of other parts of digestive tract (principal); K44.9 Diaphragmatic hernia without obstruction or gangrene; R10.84 Generalized abdominal pain; R11.0 Nausea; R19.7 Diarrhea, unspecified; R63.4 Abnormal weight loss; F17.210 Nicotine dependence, cigarettes, uncomplicated

== ENCOUNTER 2017-07-15 11:20 | Emergency (ER) | payer BC, OTHER ==
[2017-07-15] MEDS: IBUPROFEN 800 MG TAB PO (12:15)
== END 2017-07-15 12:47 | disposition home or self-care (01) ==
LOC: M ED 11:20
DX: M62.830 Muscle spasm of back (principal); S16.1XXA Strain of muscle, fascia and tendon at neck level, initial encounter; W00.9XXA Unspecified fall due to ice and snow, initial encounter; Y92.410 Unspecified street and highway as the place of occurrence of the external cause; F17.210 Nicotine dependence, cigarettes, uncomplicated
CPT/HCPCS: 72125

== ENCOUNTER → 2017-11-11 | Outpatient (REF) | payer OTHER | LOC: M LAB REF 10:28 | DX: R30.0 Dysuria (principal) ==

== ENCOUNTER → 2018-01-04 | Outpatient (CLI) | payer OTHER ==
[2018-01-04 17:50] LABS: BASO # 0.1 10^3/uL (0.0-0.2); BASO % 0.6 % (0.0-1.0); EOS % 0.3 % (0.0-3.0); HEMATOCRIT 46.8 % (42.0-52.0); HEMOGLOBIN 15.7 g/dl (13.5-17.5); IMMATURE GRANULOCYTE % 0.2 % (0-3.0); LYMPH # 2.1 10^3/uL (1.5-4.5); LYMPH % 19.9 % (24.0-44.0); MEAN CORPUSCULAR HEMOGLOBIN 30.5 pg (27.0-33.0); MEAN CORPUSCULAR HGB CONC 33.5 g/dl (32.0-36.5); MEAN CORPUSCULAR VOLUME 91.1 fl (80.0-96.0); MONO # 1.5 10^3/uL (0.0-0.8); MONO % 14.8 % (0.0-5.0); NEUTROPHILS # 6.6 10^3/uL (1.8-7.7); NEUTROPHILS % 64.2 % (36.0-66.0); PLATELET COUNT, AUTOMATED 254 10^3/uL (150-450); RED BLOOD COUNT 5.14 10^6/uL (4.30-6.10); RED CELL DISTRIBUTION WIDTH 14.3 % (11.5-14.5); WHITE BLOOD COUNT 10.3 10^3/uL (4.0-10.0)
[2018-01-04 18:36] LABS: ALBUMIN 4.3 GM/DL (3.2-5.2); ALKALINE PHOSPHATASE 87 U/L (45-117); ALT/SGPT 26 U/L (12-78); ANION GAP 10 MEQ/L (8-16); AST/SGOT 18 U/L (7-37); BILIRUBIN,TOTAL 0.5 MG/DL (0.2-1.0); BLOOD UREA NITROGEN 16 MG/DL (7-18); CALCIUM LEVEL 9.2 MG/DL (8.5-10.1); CARBON DIOXIDE LEVEL 26 MEQ/L (21-32); CHLORIDE LEVEL 102 MEQ/L (98-107); CREATININE FOR GFR 1.05 MG/DL (0.70-1.30); GLOMERULAR FILTRATION RATE > 60.0 (>56); GLUCOSE, FASTING 100 MG/DL (70-100); POTASSIUM SERUM 4.5 MEQ/L (3.5-5.1); SODIUM LEVEL 138 MEQ/L (136-145); TOTAL PROTEIN 7.6 GM/DL (6.4-8.2)
== END ==
LOC: M WUC 14:56
DX: R05 Cough (principal)
CPT/HCPCS: 80053

== ENCOUNTER → 2020-07-11 | Outpatient (CLI) | payer BC, OTHER ==
[~2020-07-11] MED LIST changes: +CYCL-707 PO; +IBUP80TA PO; -LIDOCAINE 2% INJ 100 MG/5 ML SDV (FOR ANES.) As Ordered ONE; -NS 1,000 ML IV ONE; -PROPOFOL 500 MG/50 ML VIAL As Ordered ONE
--- NOTE | 2020-07-11 09:31 | REP ---
INDICATION: PAIN COMPARISON: None. TECHNIQUE: AP, lateral, bilateral oblique views of the left elbow. FINDINGS: No acute fracture or dislocation is appreciated. Joint spaces and surrounding soft tissues appear normal. Lateral view demonstrates normal positioning to the anterior and posterior fat pads without evidence for effusion/hemarthrosis. No subcutaneous emphysema or foreign body identified. IMPRESSION: Normal age-appropriate left elbow radiographs. <Electronically signed by Ruddy Valles > 07/11/20 [id number]
== END ==
LOC: M WUC 09:01
PROVIDERS: ATTEND Physician Assistant
DX: M25.522 Pain in left elbow (principal)

== ENCOUNTER → 2021-03-03 | Outpatient (CLI) | payer BC, OTHER ==
--- NOTE | 2021-03-03 10:31 | REP ---
INDICATION: LOW BACK PAIN COMPARISON: 03/17/2009 TECHNIQUE: AP, lateral, coned-down views of the lumbar spine. FINDINGS: Alignment is maintained. Moderate multilevel degenerative changes include endplate sclerosis, marginal spurring and elements of disc space narrowing along with facet arthropathy. No acute fracture/compression injury or subluxation. IMPRESSION: 1. Multilevel degenerative changes. <Electronically signed by Ruddy Valles > 03/03/21 1022
== END ==
LOC: M WUC 09:16
PROVIDERS: ATTEND Physician Assistant
DX: M48.07 Spinal stenosis, lumbosacral region (principal); M46.96 Unspecified inflammatory spondylopathy, lumbar region

== ENCOUNTER 2022-05-30 11:03 | Emergency (ER) | payer OTHER, BC ==
[~2022-05-30] VITALS: Ht 180.3 cm; Wt 63.6 kg
[2022-05-30 11:06] VITALS: BP 123/80
[2022-05-30] MEDS ORDERED: PREDOPD (11:13)
[2022-05-30] MEDS ORDERED: METH-1164 PO (11:49)
== END 2022-05-30 11:59 | disposition home or self-care (01) ==
LOC: M ED 11:03
DX: S39.012A Strain of muscle, fascia and tendon of lower back, initial encounter (principal); F17.200 Nicotine dependence, unspecified, uncomplicated; Z79.52 Long term (current) use of systemic steroids; Z79.1 Long term (current) use of non-steroidal anti-inflammatories (NSAID); Z79.899 Other long term (current) drug therapy

== ENCOUNTER 2022-06-07 09:15 | Emergency (ER) | payer OTHER, BC ==
[~2022-06-07] VITALS: Ht 180.3 cm; Wt 64.9 kg
[2022-06-07 09:15] VITALS: BP 124/79
[~2022-06-07 09:15] MED LIST changes: +METH-1164 PO; +PREDOPD
== END 2022-06-07 10:28 | disposition home or self-care (01) ==
LOC: M ED 09:15
DX: M54.50 Low back pain, unspecified (principal); X50.0XXA Overexertion from strenuous movement or load, initial encounter; F17.200 Nicotine dependence, unspecified, uncomplicated; Z79.52 Long term (current) use of systemic steroids; Z79.1 Long term (current) use of non-steroidal anti-inflammatories (NSAID); Y99.0 Civilian activity done for income or pay

== ENCOUNTER → 2022-06-17 | Outpatient (CLI) | payer OTHER, BC | LOC: M SOG 07:59 | PROVIDERS: ATTEND Orthopaedic Surgery | DX: M54.50 Low back pain, unspecified (principal); M51.36 Other intervertebral disc degeneration, lumbar region ==

== ENCOUNTER → 2022-12-02 | Outpatient (REF) | payer OTHER | LOC: M LAB REF 19:43 | PROVIDERS: ATTEND Student in an Organized Health Care Education/Training Program | DX: R30.0 Dysuria (principal) ==

== ENCOUNTER → 2023-03-15 | Outpatient (CLI) | payer BC, OTHER ==
[2023-03-15 13:26] LABS: HEMATOCRIT 46.9 % (42.0-52.0); HEMOGLOBIN 15.4 g/dl (13.5-17.5); MEAN CORPUSCULAR HEMOGLOBIN 30.5 pg (27.0-33.0); MEAN CORPUSCULAR HGB CONC 32.8 g/dl (32.0-36.5); MEAN CORPUSCULAR VOLUME 92.9 fl (80.0-96.0); PLATELET COUNT, AUTOMATED 272 10^3/uL (150-450); RED BLOOD COUNT 5.05 10^6/uL (4.30-6.10); WHITE BLOOD COUNT 8.2 10^3/uL (4.0-10.0)
[2023-03-15 13:51] LABS: IRON (FE) 88 UG/DL (65-175); TOTAL IRON BINDING CAPACITY 383 UG/DL (250-425)
[2023-03-15 13:55] LABS: ALBUMIN 4.2 G/DL (3.2-5.2); ALKALINE PHOSPHATASE 75 U/L (46-116); ALT/SGPT 26 U/L (7.0-40); AST/SGOT 18 U/L (<34); BILIRUBIN,TOTAL 0.5 MG/DL (0.3-1.2); BLOOD UREA NITROGEN 20 MG/DL (9-23); CALCIUM LEVEL 9.2 MG/DL (8.3-10.6); CARBON DIOXIDE LEVEL 30 MMOL/L (20-31); CHLORIDE LEVEL 103 MMOL/L (98-107); CHOLESTEROL LEVEL 194 MG/DL (<200); CHOLESTEROL RISK RATIO 3.06 (<5); GLOMERULAR FILTRATION RATE > 60.0 (>49); GLUCOSE, FASTING 92 MG/DL (74-106); HDL CHOLESTEROL 63.2 MG/DL (>40); LDL CHOLESTEROL 112.2 MG/DL (<100); NON-HDL-C 130.8 MG/DL; POTASSIUM SERUM 4.6 MMOL/L (3.5-5.1); SODIUM LEVEL 134 MMOL/L (136-145); TESTOSTERONE 575 NG/DL (241-827); THYROID STIMULATING HORMONE 3.826 uIU/ML (0.55-4.78); TOTAL 25(OH) VITAMIN D 24.2 NG/ML (20.0-100.0); TOTAL PROTEIN 7.1 G/DL (5.7-8.2); TRIGLYCERIDES LEVEL 93 MG/DL (<150)
[2023-03-15 14:39] LABS: HEMOGLOBIN A1c 5.4 % (4.0-6.0)
== END ==
LOC: M LAB 12:29
PROVIDERS: ATTEND Family Medicine
DX: J44.9 Chronic obstructive pulmonary disease, unspecified (principal); R53.83 Other fatigue; E03.9 Hypothyroidism, unspecified
CPT/HCPCS: 36415; 71046; 80053; 80061; 82306; 83036; 83550; 84403; 84443; 85027; 93005; G0103

== ENCOUNTER → 2024-03-02 | Outpatient (CLI) | payer BC, OTHER ==
[2024-03-02 12:05] LABS: HEMATOCRIT 47.6 % (42.0-52.0); HEMOGLOBIN 15.8 g/dl (13.5-17.5); MEAN CORPUSCULAR HGB CONC 33.2 g/dl (32.0-36.5); MEAN CORPUSCULAR VOLUME 93.5 fl (80.0-96.0); PLATELET COUNT, AUTOMATED 300 10^3/uL (150-450); RED BLOOD COUNT 5.09 10^6/uL (4.30-6.10); WHITE BLOOD COUNT 8.1 10^3/uL (4.0-10.0)
[2024-03-02 12:31] LABS: ALBUMIN 4.2 G/DL (3.2-5.2); ALKALINE PHOSPHATASE 80 U/L (40-129); ALT/SGPT 22 U/L (7.0-40); AST/SGOT 16 U/L (<34); BILIRUBIN,TOTAL 0.7 MG/DL (0.3-1.2); BLOOD UREA NITROGEN 21 MG/DL (9-23); CALCIUM LEVEL 9.7 MG/DL (8.3-10.6); CARBON DIOXIDE LEVEL 28 MMOL/L (20-31); CHLORIDE LEVEL 105 MMOL/L (98-107); CHOLESTEROL LEVEL 209 MG/DL (<200); CHOLESTEROL RISK RATIO 3.56 (<5); CREATININE FOR GFR 0.96 MG/DL (0.70-1.30); GLOMERULAR FILTRATION RATE > 60.0 (>49); GLUCOSE, FASTING 91 MG/DL (74-106); HDL CHOLESTEROL 58.7 MG/DL (>40); LDL CHOLESTEROL 132.9 MG/DL (<100); NON-HDL-C 150.3 MG/DL; POTASSIUM SERUM 4.6 MMOL/L (3.5-5.1); PROSTATIC SPECIFIC AG MONITOR 0.51 NG/ML (< 4.00); SODIUM LEVEL 139 MMOL/L (136-145); TOTAL PROTEIN 7.7 G/DL (5.7-8.2); TRIGLYCERIDES LEVEL 87 MG/DL (<150)
[2024-03-02 12:35] LABS: THYROID STIMULATING HORMONE 3.551 uIU/ML (0.55-4.78)
[2024-03-02 12:36] LABS: TESTOSTERONE 637 NG/DL (241-827)
[2024-03-02 13:04] LABS: HEMOGLOBIN A1c 5.2 % (4.0-6.0)
== END ==
LOC: M RAD 11:13
PROVIDERS: ATTEND Family Medicine
DX: J44.9 Chronic obstructive pulmonary disease, unspecified (principal); R53.83 Other fatigue; E03.9 Hypothyroidism, unspecified

== ENCOUNTER → 2024-04-20 | Outpatient (CLI) | payer BC ==
[~2024-04-20] MED LIST changes: +E-Z-GAS II EFFERVESCENT PACKET (SODIUM BICARB./CITRIC ACID/SIMETHICONE) As Ordered ONE; +E-Z-HD 98% w/w 340GM SUSP BTL As Ordered ONE; +E-Z-PAQUE 96% w/w SUSP 176GM BTL As Ordered ONE
== END ==
LOC: M RAD 06:57
PROVIDERS: ATTEND Family Medicine
DX: R10.9 Unspecified abdominal pain (principal); K27.9 Peptic ulcer, site unspecified, unspecified as acute or chronic, without hemorrhage or perforation; K76.89 Other specified diseases of liver

== ENCOUNTER 2024-05-09 06:40 | Day surgery (SDC) | payer BC ==
[~2024-05-09] VITALS: Ht 180.3 cm; Wt 63.8 kg
[~2024-05-09 06:40] MED LIST changes: +BUDE10.7 IH; -E-Z-GAS II EFFERVESCENT PACKET (SODIUM BICARB./CITRIC ACID/SIMETHICONE) As Ordered ONE; -E-Z-HD 98% w/w 340GM SUSP BTL As Ordered ONE; -E-Z-PAQUE 96% w/w SUSP 176GM BTL As Ordered ONE; +ERGO500029 PO; +FLAR0.1S OS; +LOSA25TA13 PO
[2024-05-09] MEDS ORDERED: LIDOCAINE 2% 100MG/5ML SDV (FOR ANES.) As Ordered ONE (08:07)
[2024-05-09] MEDS ORDERED: propofoL 200 MG/20 ML VIAL As Ordered ONE (08:07)
[2024-05-09 09:07] VITALS: BP 138/80; O2SAT 99
== END 2024-05-09 09:15 | disposition home or self-care (01) ==
LOC: M OPP 06:40
PROVIDERS: ATTEND Internal Medicine Gastroenterology
DX: Z12.11 Encounter for screening for malignant neoplasm of colon (principal); D12.6 Benign neoplasm of colon, unspecified; D12.0 Benign neoplasm of cecum; K57.30 Diverticulosis of large intestine without perforation or abscess without bleeding; K64.1 Second degree hemorrhoids; Z79.899 Other long term (current) drug therapy; F17.210 Nicotine dependence, cigarettes, uncomplicated

== ENCOUNTER → 2025-01-31 | Outpatient (CLI) | payer MEDICARE ==
[2025-01-31 17:29] LABS: PLATELET COUNT, AUTOMATED 291 10^3/uL (150-450)
[2025-01-31 17:32] LABS: PSA SCREENING 0.64 NG/ML (< 4.00)
[2025-01-31 17:35] LABS: ALT/SGPT 22.0 U/L (7.0-40); AST/SGOT 23.0 U/L (<34); CALCIUM LEVEL 9.8 MG/DL (8.3-10.6); CARBON DIOXIDE LEVEL 28.0 MMOL/L (20-31); CHLORIDE LEVEL 105.0 MMOL/L (98-107); CHOLESTEROL LEVEL 186.0 MG/DL (<200); CHOLESTEROL RISK RATIO 3.11 (<5); CREATININE FOR GFR 1.03 MG/DL (0.70-1.30); GLOMERULAR FILTRATION RATE 80.1 (>49); LDL CHOLESTEROL 101.7 MG/DL (<100); NON-HDL-C 126.3 MG/DL; POTASSIUM SERUM 5.2 MMOL/L (3.5-5.1); SODIUM LEVEL 138.0 MMOL/L (136-145); TRIGLYCERIDES LEVEL 123.0 MG/DL (<150)
[2025-01-31 17:36] LABS: FREE T4 0.95 NG/DL (0.89-1.76)
== END ==
LOC: M PLALAB 15:27
PROVIDERS: ATTEND Family Medicine
DX: Z13.0 Encounter for screening for diseases of the blood and blood-forming organs and certain disorders involving the immune mechanism (principal); Z13.29 Encounter for screening for other suspected endocrine disorder; Z13.6 Encounter for screening for cardiovascular disorders; Z12.5 Encounter for screening for malignant neoplasm of prostate; J44.9 Chronic obstructive pulmonary disease, unspecified; Z79.899 Other long term (current) drug therapy
CPT/HCPCS: 36415; 80053; 80061; 84439; 84443; 85027; G0103

== ENCOUNTER → 2025-01-31 | Outpatient (REF) | payer MEDICARE | LOC: M SFHCPLAZ 14:37 | PROVIDERS: ATTEND Family Medicine | DX: Z53.9 Procedure and treatment not carried out, unspecified reason (principal) ==

== ENCOUNTER → 2025-03-18 | Outpatient (CLI) | payer MEDICARE | LOC: M RAD 16:44 | PROVIDERS: ATTEND Family Medicine | DX: Z12.2 Encounter for screening for malignant neoplasm of respiratory organs (principal); F17.210 Nicotine dependence, cigarettes, uncomplicated; J43.9 Emphysema, unspecified; I25.10 Atherosclerotic heart disease of native coronary artery without angina pectoris; R91.1 Solitary pulmonary nodule; I70.0 Atherosclerosis of aorta ==